=== PATIENT | male | born 1950 | race Caucasian/White ===

== ENCOUNTER → 2016-07-10 | Outpatient (CLI) | payer MEDICARE ==
[2015-12-14 12:23] VITALS: BP 139/79
[~2016-07-10] MED LIST: CETI10TA77 PO; FLUT10SP NS; LOSA25TA4 PO; RANI150T2 PO; SITA100T PO; TAMS0.4C2 PO; VENTOLIN HFA18 GM IH
--- NOTE | 2016-07-11 10:41 | SLEEP ---
DATE OF STUDY: 07/10/2016 ATTENDING PHYSICIAN: Dr. Jennifer Bob. INDICATIONS: The patient is 65 years old who weighs 229 pounds with a BMI of 46. The patient's [place] score was 8. Sleep study was performed at [facility] to rule out GABBIE. During the night of the study, the patient spent 423 minutes in bed and slept for 337 minutes with a sleep efficiency of 80%. Sleep latency was 13 minutes with a REM latency of 312 minutes. Overall, sleep architecture showed increased stage I sleep, normal stage II sleep, normal slow wave, and reduced REM sleep. During the night of the study, the patient had one obstructive apnea, no mixed or central apneas. There were 7 hypopneas. The patient's apnea hypopnea index was 7 per hour. Supine index 13 per hour with a REM index of 10 per hour. Review of nocturnal oximetry study revealed a mean oxygen saturation of 96% with the lowest of 87%. 18.5% of time oxygen saturation remained between 80% and 89% and predominate was between 87-89%. EKG monitoring revealed average heart rate of 68 beats per minute. Normal sinus rhythm. No sustained arrhythmias were observed. PLMS were seen at index of 68 per hour and 1 per hour caused EEG arousals. Due to low AHI, the patient did not meet the criteria for CPAP initiation. IMPRESSION: 1. Mild sleep apnea-hypopnea syndrome with an AHI of 7 per hour. 2. Mild nocturnal hypoxia, suspect secondary to obesity hypoventilation syndrome. 3. Severe periodic limb movements of sleep at an index of 68 per hour, but only 1 per hour caused EEG arousals. RECOMMENDATIONS: 1. The patient did not meet the criteria for CPAP initiation due to low AHI. 2. Weight loss is first recommended to treat the patient's mild sleep apnea. In addition, the patient should also avoid sleeping in supine position. 3. If patient remains clinically symptomatic despite above recommendations, then other treatment options at that time would include a trial of an oral appliance or CPAP titration. 4. Caution regarding driving until the patient's hypersomnia is resolved. 5. PLMS does not need to be treated unless the patient has symptoms of restless legs during the day. DENISSE DASH MD DR: ARAMIS/mckinley JOB#: [id number] / [id number] JENNIFER Lindsay MD MTDD
== END | disposition home or self-care (01) ==
LOC: SLPLAB 18:36
PROVIDERS: ATTEND Physician Assistant Medical
DX: G47.33 Obstructive sleep apnea (adult) (pediatric) (principal); R06.83 Snoring
CPT/HCPCS: 95810

== ENCOUNTER 2017-03-15 06:33 | Day surgery (SDC) | payer MEDICARE ==
[~2017-03-15] VITALS: Ht 175.3 cm; Wt 108.9 kg
[~2017-03-15 06:33] MED LIST changes: +ALFU10TA3 PO
[2017-03-15] MEDS ORDERED: PROCHLORPERAZINE 10 MG/2 ML VIAL. IV PRN (07:00)
[2017-03-15] MEDS ORDERED: ONDANSETRON PF 4 MG/2 ML VIAL. IV PRN (07:00)
[2017-03-15] MEDS ORDERED: LIDOCAINE 1% 1 ML SYRINGE. ID PRN (07:00)
[2017-03-15] MEDS ORDERED: fentaNYL PF VIAL 100 MCG/2 ML VIAL IV PRN ×2 (07:00)
[2017-03-15] MEDS ORDERED: IV RINGERS,LACTATED 1000ML 1,000 ML IV SCH (07:00)
[2017-03-15] MEDS ORDERED: BUPIVAC MPF-EPI 0.5%-1:200000 10 ML VIAL. ONE (07:10)
[2017-03-15] MEDS ORDERED: LIDOCAINE 2% PF Vial for OR 5 ML VIAL. ONE ×2 (07:21→09:33)
[2017-03-15] MEDS ORDERED: FAMOTIDINE 20 MG/2 ML VIAL ONE (07:21)
[2017-03-15] MEDS ORDERED: ONDANSETRON PF 4 MG/2 ML VIAL. ONE ×2 (07:21→09:33)
[2017-03-15] MEDS ORDERED: PROPOFOL 20 ML IV ONE ×2 (07:21→09:33)
[2017-03-15] MEDS ORDERED: DEXAMETHASONE SOD PHOS 20 MG/5 ML VIAL. ONE (07:21)
[2017-03-15] MEDS ORDERED: MIDAZOLAM HCL/PF 2 MG/2 ML VIAL. ONE (07:22)
[2017-03-15] MEDS ORDERED: fentaNYL PF VIAL 100 MCG/2 ML VIAL ONE ×2 (07:22→09:58)
[2017-03-15] MEDS ORDERED: ROCURONIUM 100 MG/10 ML VIAL. ONE (07:22)
[2017-03-15] MEDS ORDERED: SUCCINYLCHOLINE 200 MG/10 ML VIAL. ONE (08:16)
[2017-03-15] MEDS ORDERED: PHENYLEPHRINE in 0.9% NACL PF 1 MG/10 ML DISP.SYRIN. IV ONE (08:33)
[2017-03-15] MEDS ORDERED: SEVOFLURANE 31 TO 60 MINUTES. IH ONE (09:33)
--- NOTE | 2017-03-15 09:42 | PDOC ---
BRIEF OPERATIVE NOTE Pre-Op Diagnosis #[id number] umbilical hernia umb hernia repair with mesh lj richards ebl 10 ivf 1000 curtis well to rr stable. AIDE OCONNOR MD Mar 15, 2017 09:42
[2017-03-15] MEDS ORDERED: OXYC-323 PO (09:44)
[2017-03-15] MEDS ORDERED: oxyCODONE/APAP 5/325 1 TAB TABLET PO ONE (10:00)
--- NOTE | 2017-03-15 10:07 | OP ---
DATE OF SURGERY: 03/15/2017 PREOPERATIVE DIAGNOSIS: Umbilical hernia. POSTOPERATIVE DIAGNOSIS: Umbilical hernia. PROCEDURE: Umbilical hernia repair with mesh. SURGEON: Aide Oconnor MD ANESTHESIA: General. ESTIMATED BLOOD LOSS: 10 mL IV FLUIDS: 1000 mL INDICATIONS: The patient is a 66-year-old male who presents with an umbilical hernia that he would like to have it repaired, it is symptomatic. FINDINGS: He had a 2 x 3 cm hernia defect. His fascia was very thin. He has a diastasis recti and his subcutaneous fat was also very sparse. The dermis of the umbilicus was adherent to the fascia and had to be removed with cautery. At the completion of the procedure, the umbilical skin appeared viable and healthy. PROCEDURE IN DETAIL: After informed consent was obtained, the patient was taken to the operating room and placed in supine position. After adequate induction of general anesthesia, he was prepped and draped in usual sterile fashion. A supraumbilical skin incision was made with a scalpel. Subcutaneous tissue divided with cautery. The fascia was quickly encountered. He had a very minimal amount of subcutaneous fat. This was somewhat unexpected since his BMI is 35. The dermis of the umbilicus was from the hernia sac and then from its attachment to the fascia, there was minimal amount of subcutaneous fat to preserve the blood supply to the dermis. At this point, the fascial was inspected. He had a very small 2-3 mm defect above the primary defect, but the primary defect measured 2 x 3 cm. The hernia was repaired with an 8 cm Bard Ventralex patch that was placed beneath the fascia and sutured in place with 8 interrupted U sutures using 0 Prolene to secure the periphery of the mesh to the abdominal wall. The area was irrigated. The fascia was injected with local anesthetic. The skin had been injected with local anesthetic at the beginning of the procedure. The fascia was then closed over the mesh with 0 Prolene in a running fashion and then the dermis of the umbilicus was tacked back down to the fascia with 3-0 Vicryl x 2. The skin was closed with 4-0 Monocryl in subcuticular fashion. Sterile dressings were placed, which consisted of a cotton ball, followed by Mastisol, Steri-Strips, and Tegaderm. He tolerated the procedure well. He has been transferred in stable condition to the recovery room. AIDE OCONNOR MD DR: EVELIN/mckinley JOB#: [id number] / [id number] JENNIFER Lindsay MD, LAIN RIOS
[2017-03-15 10:30] VITALS: BP 112/72
== END 2017-03-15 11:08 | disposition home or self-care (01) ==
LOC: SURG 06:33
PROVIDERS: ATTEND Surgery
DX: K42.9 Umbilical hernia without obstruction or gangrene (principal); E78.00 Pure hypercholesterolemia, unspecified; I10 Essential (primary) hypertension; J45.909 Unspecified asthma, uncomplicated; K21.9 Gastro-esophageal reflux disease without esophagitis; E66.9 Obesity, unspecified; Z68.44 Body mass index [BMI] 60.0-69.9, adult; E11.9 Type 2 diabetes mellitus without complications; M19.91 Primary osteoarthritis, unspecified site; Z87.39 Personal history of other diseases of the musculoskeletal system and connective tissue; Z72.0 Tobacco use; Z88.8 Allergy status to other drugs, medicaments and biological substances; Z88.6 Allergy status to analgesic agent; Z91.041 Radiographic dye allergy status
CPT/HCPCS: 49585; 82962; J0330; J0690; J1100; J2250; J2370; J2405; J2704; J3010; J3490; S0028; A4215; J7120; J2001

== ENCOUNTER 2017-03-15 15:53 | Emergency (ER) | payer MEDICARE ==
[~2017-03-15] VITALS: Ht 175.3 cm; Wt 108.9 kg
[~2017-03-15 15:53] MED LIST changes: +OXYC-323 PO
[2017-03-15 16:10] VITALS: BP 140/90
[2017-03-15 16:49] LABS: BILIRUBIN,URINE NEGATIVE (NEG); GLUCOSE,URINE NEGATIVE (NEG); NITRITE,URINE NEGATIVE (NEG); PH,URINE 6.5; PROTEIN,URINE NEGATIVE (NEG-TRACE); UROBILINOGEN,URINE 0.2 mg/dL (0.2 mg/dL)
[2017-03-15 16:57] LABS: BACTERIA,URINE 0 /HPF (0-FEW); RBC,URINE 0 /HPF (0-2); WBC,URINE 0 /HPF (0-4)
--- NOTE | 2017-03-15 17:35 | PHYS DOC ---
Past Medical History Past Medical History: Diabetes-Type II, High Cholesterol, Hypertension, Other Additional Past Medical Histor: hernia Past Surgical History: Other Additional Past Surgical Histo: BILATERAL SHOULDER REPAIR; (L) KNEE REPAIR; hernia Alcohol Use: Occasionally Drug Use: None Adult General Chief Complaint Chief Complaint: URINARY RETENTION HPI HPI Patient is a 66 year old male who presents with urinary retention. The patient states he had inguinal hernia repair at about [address] Moya. He has not been able to urinate since before the surgery. He does have suprapubic fullness and discomfort. Denies fevers or chills, nausea or vomiting, flank pain. No history of BPH or urinary retention. He called Dr. Lozano who referred him here for further evaluation. Review of Systems Review of Systems Constitutional: Denies fever or chills HENT: Denies nasal congestion or sore throat Respiratory: Denies cough or shortness of breath Cardiovascular: Denies chest pain GI: Denies abdominal pain, nausea, vomiting, or diarrhea : Reports urinary retention Musculoskeletal: Denies back pain or joint pain Integument: Denies rash or skin lesions Neurologic: Denies headache Allergies Allergies Allergies Coded Allergies Type Severity Reaction Last Updated Verified iodine Allergy Severe Anaphylaxis 03/15/17 Yes metformin Allergy Intermediate 03/15/17 Yes morphine Allergy Intermediate Nausea and Vomiting 03/15/17 Yes naproxen sodium Allergy Intermediate Rash 03/15/17 Yes simvastatin Allergy Intermediate 03/15/17 Yes Physical Exam Physical Exam Constitutional: Obese, no acute distress, non-toxic appearance. HENT: Normocephalic, atraumatic, bilateral external ears normal, oropharynx moist, nose normal. Eyes: conjunctiva normal, no discharge. Neck: supple, no stridor. Cardiovascular: RRR, no murmurs, no edema. Lungs & Thorax: LCTAB, no wheezing, no respiratory distress. Abdomen: soft, suprapubic tenderness without rebound or guarding, no masses or pulsatile masses, nondistended. Surgical bandages in place, clean/dry/intact. Skin: Warm, dry, no erythema, no rash. Back: No CVA tenderness. Extremities: No tenderness, no edema. Neurologic: Alert and oriented X 3, no focal deficits noted. Psychologic: Affect normal, judgement normal, mood normal. Current Patient Data Vital Signs Vital Signs Date Time Temp Pulse Resp B/P (MAP) Pulse Ox O2 Delivery O2 Flow Rate FiO2 03/15/17 16:10 98.3 76 18 140/90 (107) 92 Room Air 98.3 Lab Values Laboratory Tests Test 03/15/17 16:35 Urine Collection Type U cath Urine Color Yellow Urine Clarity Clear Urine pH 6.5 Urine Specific [place] 1.010 Urine Protein Negative mg/dL (NEG-TRACE) Urine Glucose (UA) Negative mg/dL (NEG) Urine Ketones (Stick) Negative mg/dL (NEG) Urine Blood Negative (NEG) Urine Nitrite Negative (NEG) Urine Bilirubin Negative (NEG) Urine Urobilinogen Dipstick 0.2 mg/dL (0.2 mg/dL) Urine Leukocyte Esterase Negative (NEG) Urine RBC 0 /HPF (0-2) Urine WBC 0 /HPF (0-4) Urine Renal Epithelial Cells Few /LPF Urine Bacteria 0 /HPF (0-FEW) EKG EKG [] Radiology/Procedures Radiology/Procedures [] Course & Med Decision Making Course & Med Decision Making Pertinent Labs and Imaging studies reviewed. (See chart for details) The patient presents with acute urinary retention. RN performed straight catheterization with greater than 600 mL of urine output. Dr. Lozano had advised that the patient would most likely be able to spontaneously void after initial drainage of bladder, so did not recommend that he go home with cheema. Dr. Obrien took the call from Dr. Lozano prior to arrival. The patient had significant relief of his symptoms. Recommended labs and UA. The patient stated he had already been at the hospital all day and didn't want to stay any longer. He declined labs. I informed him that he could have lab abnormalities contributing to this condition, such as acute renal failure. He does not want to stay and understands risks of leaving including undiagnosed condition. Recommend follow-up with Dr. Moya in 2-3 days. Come back for high fever, severe pain, uncontrolled vomiting, recurrence of urinary retention, any otherwise worsening condition. Discharged home in stable condition. He did not wait for discharge papers. [] Dragon Disclaimer Dragon Disclaimer This electronic medical record was generated, in whole or in part, using a voice recognition dictation system. Departure Departure Impression: Primary Impression: Acute urinary retention Disposition: HOME, SELF-CARE Condition: STABLE JENNY TURPIN MD Mar 15, 2017 17:35
== END 2017-03-15 16:56 | disposition home or self-care (01) ==
LOC: ER 15:53
DX: R33.9 Retention of urine, unspecified (principal); E11.9 Type 2 diabetes mellitus without complications; I10 Essential (primary) hypertension; E78.00 Pure hypercholesterolemia, unspecified; Z98.890 Other specified postprocedural states; Z88.5 Allergy status to narcotic agent; Z88.8 Allergy status to other drugs, medicaments and biological substances; Z91.041 Radiographic dye allergy status
CPT/HCPCS: 81001; 99283; P9612

== ENCOUNTER 2017-03-16 23:27 | Inpatient (IN) | payer MEDICARE ==
[~2017-03-16] VITALS: Ht 175.3 cm; Wt 108.9 kg
--- NOTE | 2017-03-16 23:47 | PHYS DOC ---
Past Medical History Past Medical History: Diabetes-Type II, High Cholesterol, Hypertension, Other Additional Past Medical Histor: hernia Past Surgical History: Other Additional Past Surgical Histo: BILATERAL SHOULDER REPAIR; (L) KNEE REPAIR; hernia Alcohol Use: Occasionally Drug Use: None Adult General Chief Complaint Chief Complaint: MULTIPLE COMPLAINTS HPI HPI Patient is a 66 year old male who presents with nausea vomiting and a syncopal episode. He states his symptoms started tonight around 7:00 when he started having vomiting and vomited about 4 times nonbloody nonbilious material. In the course of vomiting he passed out. He also states he feels exhausted and short of breath like he just ran a brace. He denies any chest pain. He states that he had his hernia repair on March 15, 2017 and since that he's not had any flatus or stools. He also states his abdomen is distended. He also states he had to come in yesterday because of urinary retention to have his bladder drained. He states his been urinating fine without any difficulty. Review of Systems Review of Systems Constitutional: Denies fever or chills [] Eyes: Denies change in visual acuity, redness, or eye pain [] HENT: Denies nasal congestion or sore throat [] Respiratory: Denies cough or shortness of breath [] Cardiovascular: No additional information not addressed in HPI [] GI: Positive for abdominal pain, nausea, vomiting, denies any bloody stools or diarrhea [] : Denies dysuria or hematuria [] Musculoskeletal: Denies back pain or joint pain [] Integument: Denies rash or skin lesions [] Neurologic: Denies headache, focal weakness or sensory changes [] Endocrine: Denies polyuria or polydipsia [] Current Medications Current Medications Current Medications Medications (Trade) Dose Ordered Sig/Len Start Time Stop Time Status Last Admin Dose Admin Ondansetron HCl (Zofran) 4 mg 1X ONCE 03/17/17 00:00 03/17/17 00:01 DC 03/17/17 00:28 4 MG Sodium Chloride 1,000 ml @ 1,000 mls/hr 1X ONCE 03/17/17 00:00 03/17/17 00:59 DC 03/17/17 00:30 1,000 MLS/HR Allergies Allergies Allergies Coded Allergies Type Severity Reaction Last Updated Verified iodine Allergy Severe Anaphylaxis 03/15/17 Yes metformin Allergy Intermediate 03/15/17 Yes morphine Allergy Intermediate Nausea and Vomiting 03/15/17 Yes naproxen sodium Allergy Intermediate Rash 03/15/17 Yes simvastatin Allergy Intermediate 03/15/17 Yes Physical Exam Physical Exam Constitutional: Well developed, well nourished, no acute distress, non-toxic appearance. [] HENT: Normocephalic, atraumatic, bilateral external ears normal, oropharynx moist, no oral exudates, nose normal. [] Eyes: PERRLA, EOMI, conjunctiva normal, no discharge. [] Neck: Normal range of motion, no tenderness, supple, no stridor. [] Cardiovascular:Heart rate regular rhythm, no murmur [] Lungs & Thorax: Bilateral breath sounds clear to auscultation [] Abdomen: Bowel sounds normal, soft, distended with hypoactive occasional high- pitched sounds, dressing over the umbilicus with mild erythema extending partially 6 cm below, no masses, no pulsatile masses. [] Skin: Warm, dry, no erythema, no rash. [] Back: No tenderness, no CVA tenderness. [] Extremities: No tenderness, no cyanosis, no clubbing, ROM intact, no edema. [] Neurologic: Alert and oriented X 3, normal motor function, normal sensory function, no focal deficits noted. [] Psychologic: Affect normal, judgement normal, mood normal. [] Current Patient Data Vital Signs Vital Signs Date Time Temp Pulse Resp B/P (MAP) Pulse Ox O2 Delivery O2 Flow Rate FiO2 03/17/17 03:05 88 Room Air 03/17/17 02:30 76 11 132/73 (92) 03/16/17 23:37 97.9 97.9 Lab Values Laboratory Tests Test 03/16/17 23:48 03/17/17 02:45 03/17/17 03:56 White Blood Count 17.6 x10^3/uL (4.0-11.0) H Red Blood Count 5.73 x10^6/uL (4.30-5.70) H Hemoglobin 17.2 g/dL (13.0-17.5) Hematocrit 51.7 % (39.0-53.0) Mean Corpuscular Volume 90 fL (79-100) Mean Corpuscular Hemoglobin 30 pg (25-35) Mean Corpuscular Hemoglobin Concent 33 g/dL (31-37) Red Cell Distribution Width 13.9 % (11.5-14.5) Platelet Count 187 x10^3/uL (140-400) Neutrophils (%) (Auto) 85 % (31-73) H Lymphocytes (%) (Auto) 7 % (24-48) L Monocytes (%) (Auto) 7 % (0-9) Eosinophils (%) (Auto) 1 % (0-3) Basophils (%) (Auto) 0 % (0-3) Neutrophils # (Auto) 14.9 x10^3uL (1.8-7.7) H Lymphocytes # (Auto) 1.2 x10^3/uL (1.0-4.8) Monocytes # (Auto) 1.3 x10^3/uL (0.0-1.1) H Eosinophils # (Auto) 0.2 x10^3/uL (0.0-0.7) Basophils # (Auto) 0.1 x10^3/uL (0.0-0.2) Prothrombin Time 13.9 SEC (11.7-14.0) Prothrombin Time INR 1.1 (0.8-1.1) Sodium Level 139 mmol/L (136-145) Potassium Level 4.0 mmol/L (3.5-5.1) Chloride Level 97 mmol/L (98-107) L Carbon Dioxide Level 36 mmol/L (21-32) H Anion Gap 6 (6-14) Blood Urea Nitrogen 14 mg/dL (8-26) Creatinine 1.0 mg/dL (0.7-1.3) Estimated GFR (Cockcroft-Gault) 74.8 Glucose Level 142 mg/dL (70-99) H Calcium Level 10.1 mg/dL (8.5-10.1) Magnesium Level 1.9 mg/dL (1.8-2.4) Total Bilirubin 0.5 mg/dL (0.2-1.0) Direct Bilirubin < 0.1 mg/dL (0.0-0.2) Aspartate Amino Transferase (AST) 33 U/L (15-37) Alanine Aminotransferase (ALT) 33 U/L (16-63) Alkaline Phosphatase 79 U/L (46-116) Creatine Kinase 511 U/L (39-308) H Creatine Kinase MB (Mass) 7.6 ng/mL (0.0-3.6) H Creatine Kinase MB Relative Index 1.5 % (0-4) Troponin I Quantitative < 0.017 ng/mL (0.000-0.055) < 0.017 ng/mL (0.000-0.055) NQ-Xqa-R-Type Natriuretic Peptide 119 pg/mL (0-124) Total Protein 7.5 g/dL (6.4-8.2) Albumin 4.2 g/dL (3.4-5.0) Lipase 140 U/L (73-393) Thyroid Stimulating Hormone (TSH) 4.216 uIU/mL (0.358-3.74) H Urine Collection Type Unknown Urine Color Yellow Urine Clarity Clear Urine pH 7.0 Urine Specific [place] 1.010 Urine Protein Negative mg/dL (NEG-TRACE) Urine Glucose (UA) Negative mg/dL (NEG) Urine Ketones (Stick) Negative mg/dL (NEG) Urine Blood Negative (NEG) Urine Nitrite Negative (NEG) Urine Bilirubin Negative (NEG) Urine Urobilinogen Dipstick 0.2 mg/dL (0.2 mg/dL) Urine Leukocyte Esterase Negative (NEG) Urine RBC Occ /HPF (0-2) Urine WBC Occ /HPF (0-4) Urine Squamous Epithelial Cells Few /LPF Urine Amorphous Sediment Present /HPF Urine Bacteria 0 /HPF (0-FEW) Urine Opiates Screen Neg (NEG) Urine Methadone Screen Neg (NEG) Urine Barbiturates Neg (NEG) Urine Phencyclidine Screen Neg (NEG) Urine Amphetamine/Methamphetamine Neg (NEG) Urine Benzodiazepines Screen Neg (NEG) Urine Cocaine Screen Neg (NEG) Urine Cannabinoids Screen Neg (NEG) Urine Ethyl Alcohol Neg (NEG) Laboratory Tests 03/16/17 23:48 Laboratory Tests 03/16/17 23:48 EKG EKG EKG shows sinus rhythm with rate of [address] elevations, T-wave inversions noted in leads aVL, V1 V2, normal axis, QTC 396 ms, as interpreted by me. Radiology/Procedures Radiology/Procedures [facility] [address] [place] [address] IMAGING REPORT Signed PATIENT: XOCHITL CUENCA ACCOUNT: [id number] : 1950 LOCATION: ER AGE: 66 SEX: M EXAM STATUS: REG ER ORD. PHYSICIAN: LULÚ LEIVA MD REASON: pain PROCEDURE: CT ABDOMEN PELVIS WO CONTRAST INDICATION: abd distension COMPARISON: None. TECHNIQUE: Axial CT images were obtained through the abdomen and pelvis without intravenous contrast. Limited assessment of solid organ structures and vasculature secondary to lack of intravenous contrast. One or more of the following individualized dose reduction techniques were utilized for this examination: 1. Automated exposure control; 2. Adjustment of the mA and/or kV according to patient size; 3. Use of iterative reconstruction technique. FINDINGS: Mild probable atelectasis at lung bases. Mild calcific atherosclerosis without abdominal aortic aneurysm. Small left greater than right fat-containing inguinal hernia. Couple of Subcentimeter low-attenuation right lobe of liver lesion, not well characterized on this exam. No intrahepatic bile duct dilation. Gallbladder is contracted. No peripancreatic edema. Spleen unremarkable. No hydronephrosis. Bladder is partially distended at time of exam. There is some subcutaneous edema at the ventral abdominal wall with some subcutaneous air. Colonic diverticulosis. There is dilation of proximal loops of bowel with distal decompression. There is also dilatation of the stomach. Degenerative changes spine. This contributes to multilevel central canal neural foraminal stenosis. IMPRESSION: 1. Dilatation of the stomach and proximal small bowel loops with more distal decompression. This can be seen in small bowel obstruction. 2. There is subcutaneous air and edema anterior abdominal and pelvic wall. Would correlate for possible causes such as posttraumatic or injection related. If no history of injection or trauma other possible causes include infection. 3. Subcentimeter low-attenuation liver lesions which are too small to characterize on this exam. Electronically signed by: Charlette Jones MD (03/17/2017 2:30 AM) [facility] DICTATED and SIGNED BY: CHARLETTE JONES MD DATE: 03/17/17 0216 CC: LULÚ LEIVA MD; JENNIFER JONES MD ~ Impressions: Bowel obstruction Syncope Course & Med Decision Making Course & Med Decision Making Pertinent Labs and Imaging studies reviewed. (See chart for details) Labs show any acute abnormality's. CT scan shows obstruction with an area of concern along the abdominal and pelvic wall. I spoke with Dr. Lozano regarding the CT scan, his vitals, his presentation and labs. Patient's being admitted for his bowel obstruction. His pain is controlled at this time. We will write interim orders for D5 half normal saline. Spoke with Dr. Jennifer Jones who agrees with the plan. I believe his syncopal episode occurred while he was vomiting is likely vasovagal in nature. Will put on telemetry and repeat troponins. He's been ER for 5 hours and has not had any other complaints. Dragon Disclaimer Dragon Disclaimer This electronic medical record was generated, in whole or in part, using a voice recognition dictation system. Departure Departure Impression: Primary Impression: Bowel obstruction Disposition: HOME, SELF-CARE Admitting Physician: Jennifer Jones Condition: STABLE Referrals: JENNIFER JONES MD (PCP) Problem Qualifiers Primary Impression: Bowel obstruction Intestinal obstruction type: other intestinal obstruction Qualified Codes: K56.69 - Other intestinal obstruction LULÚ LEIVA MD Mar 16, 2017 23:47
[2017-03-17] LABS: BASO # 0.1 x10^3/uL (0.0-0.2); BASO % 0 % (0-3); EOS % 1 % (0-3); HEMATOCRIT 51.7 % (39.0-53.0); HEMOGLOBIN 17.2 g/dL (13.0-17.5); LYMPH # 1.2 x10^3/uL (1.0-4.8); LYMPH % 7 % (24-48); MEAN CORPUSCULAR HEMOGLOBIN 30 pg (25-35); MEAN CORPUSCULAR HGB CONC 33 g/dL (31-37); MEAN CORPUSCULAR VOLUME 90 fL (79-100); MONO % 7 % (0-9); NEUT % 85 % (31-73); PLATELET COUNT 187 x10^3/uL (140-400); RED BLOOD COUNT 5.73 x10^6/uL (4.30-5.70); RED CELL DISTRIBUTION WIDTH 13.9 % (11.5-14.5); WHITE BLOOD COUNT 17.6 x10^3/uL (4.0-11.0)
[2017-03-17] MEDS ORDERED: IV NORMAL SALINE 1000ML BAG 1,000 ML IV ONE
[2017-03-17] MEDS ORDERED: ONDANSETRON PF 4 MG/2 ML VIAL. IV ONE
[2017-03-17 00:16] LABS: ANION GAP 6 (6-14); BLOOD UREA NITROGEN 14 mg/dL (8-26); CALCIUM 10.1 mg/dL (8.5-10.1); CARBON DIOXIDE 36 mmol/L (21-32); CHLORIDE 97 mmol/L (98-107); GFR 74.8; GLUCOSE 142 mg/dL (70-99); INR 1.1 (0.8-1.1); PROTHROMBIN TIME PATIENT 13.9 SEC (11.7-14.0); SODIUM 139 mmol/L (136-145)
[2017-03-17 00:21] LABS: ALBUMIN 4.2 g/dL (3.4-5.0); ALK PHOS 79 U/L (46-116); ALT (SGPT) 33 U/L (16-63); AST (SGOT) 33 U/L (15-37); DIRECT BILIRUBIN < 0.1 mg/dL (0.0-0.2); MAGNESIUM 1.9 mg/dL (1.8-2.4); TOTAL BILIRUBIN 0.5 mg/dL (0.2-1.0); TOTAL PROTEIN 7.5 g/dL (6.4-8.2)
[2017-03-17 00:29] LABS: CKMB MASS 7.6 ng/mL (0.0-3.6)
--- NOTE | 2017-03-17 02:34 | RAD ---
INDICATION: abd distension COMPARISON: None. TECHNIQUE: Axial CT images were obtained through the abdomen and pelvis without intravenous contrast. Limited assessment of solid organ structures and vasculature secondary to lack of intravenous contrast. One or more of the following individualized dose reduction techniques were utilized for this examination: 1. Automated exposure control; 2. Adjustment of the mA and/or kV according to patient size; 3. Use of iterative reconstruction technique. FINDINGS: Mild probable atelectasis at lung bases. Mild calcific atherosclerosis without abdominal aortic aneurysm. Small left greater than right fat-containing inguinal hernia. Couple of Subcentimeter low-attenuation right lobe of liver lesion, not well characterized on this exam. No intrahepatic bile duct dilation. Gallbladder is contracted. No peripancreatic edema. Spleen unremarkable. No hydronephrosis. Bladder is partially distended at time of exam. There is some subcutaneous edema at the ventral abdominal wall with some subcutaneous air. Colonic diverticulosis. There is dilation of proximal loops of bowel with distal decompression. There is also dilatation of the stomach. Degenerative changes spine. This contributes to multilevel central canal neural foraminal stenosis. IMPRESSION: 1. Dilatation of the stomach and proximal small bowel loops with more distal decompression. This can be seen in small bowel obstruction. 2. There is subcutaneous air and edema anterior abdominal and pelvic wall. Would correlate for possible causes such as posttraumatic or injection related. If no history of injection or trauma other possible causes include infection. 3. Subcentimeter low-attenuation liver lesions which are too small to characterize on this exam. Electronically signed by: Ricardo Bob MD (03/17/2017 2:30 AM) [facility]
[2017-03-17 03:07] LABS: BILIRUBIN,URINE NEGATIVE (NEG); GLUCOSE,URINE NEGATIVE (NEG); NITRITE,URINE NEGATIVE (NEG); PROTEIN,URINE NEGATIVE (NEG-TRACE); UROBILINOGEN,URINE 0.2 mg/dL (0.2 mg/dL)
[2017-03-17 03:14] LABS: BARBITURATES NEG (NEG); BENZODIAZEPINES NEG (NEG); CANNABINOIDS NEG (NEG); COCAINE NEG (NEG); METHADONE NEG (NEG); OPIATES NEG (NEG); PHENCYCLIDINE NEG (NEG)
[2017-03-17 03:23] LABS: BACTERIA,URINE 0 /HPF (0-FEW); RBC,URINE OCC /HPF (0-2); SQUAMOUS EPITHELIAL CELL,UR FEW /LPF; WBC,URINE OCC /HPF (0-4)
[2017-03-17] MEDS ORDERED: IV DEXTROSE 5 %-0.45 % NACL 1,000 ML IV ONE (05:30)
--- NOTE | 2017-03-17 06:13 | EKG ---
[facility] [address] [place] [address] Test Date: 2017-03-16 Test Time: 23:46:35 Pat Name: XOCHITL CUENCA Department: Room: 422 Gender: M [employer]or: : 1950 Requested By: LULÚ LEIVA Order Number: [id number] Reading MD: Desire Dahl Measurements Intervals [place] Rate: 57 P: 39 [place]: 156 QRS: 72 QRSD: 82 T: 59 QT: 404 QTc: 396 Interpretive Statements SINUS RHYTHM NORMAL EKG Electronically Signed On 03-28-2017 9:53:48 CDT by Desire Dahl
[2017-03-17 07:00] VITALS: BP 133/82
--- NOTE | 2017-03-17 07:35 | RAD ---
Portable chest, 03/16/2017: History: Syncope Comparison is made to a study from 03/19/2015. The heart size and pulmonary vascularity are normal. There is bibasilar linear atelectasis or scarring. No pulmonary consolidation is seen. There is no evidence of pleural fluid. IMPRESSION: Minimal bibasilar linear atelectasis and/or scarring.
--- NOTE | 2017-03-17 07:39 | RAD ---
Abdomen, 2 views, 03/17/2017: History: Abdominal distention There is gas in the colon without significant colonic distention. There is very little small bowel gas. Gastric and mild small bowel distention seen on the recent CT study is not visible radiographically since those structures are fluid-filled. No free air is seen in the abdomen. There is no evidence of organomegaly. Wire-like opacities overlying the upper pelvis most likely lie on the of the patient. IMPRESSION: No acute radiographic abnormality is detected.
[2017-03-17 08:25] LABS: BASO % 0 % (0-3); EOS % 2 % (0-3); HEMATOCRIT 47.3 % (39.0-53.0); HEMOGLOBIN 15.6 g/dL (13.0-17.5); LYMPH # 1.1 x10^3/uL (1.0-4.8); LYMPH % 9 % (24-48); MEAN CORPUSCULAR HEMOGLOBIN 30 pg (25-35); MEAN CORPUSCULAR HGB CONC 33 g/dL (31-37); MEAN CORPUSCULAR VOLUME 91 fL (79-100); MONO % 8 % (0-9); NEUT % 81 % (31-73); PLATELET COUNT 171 x10^3/uL (140-400); RED BLOOD COUNT 5.21 x10^6/uL (4.30-5.70); RED CELL DISTRIBUTION WIDTH 14.3 % (11.5-14.5)
--- NOTE | 2017-03-17 08:33 | PDOC2 ---
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 Discharged home, returned with urinary retention(now urinating without problem). Reports hiccups since surgery , abdominal distention, no flatus or stool. Yesterday began vomiting and had a syncopal episode. Currently still having bloating, hiccups, and nausea Past Medical History Cardiovascular: HTN, Hyperlipidemia Endocrine: No pertinent hx Past Surgical History Past Surgical History: Hernia Repair Family History Family History: Other (noncontributory to current illness ) Social History Quit ALCOHOL: rare Drugs: None Current Problem List Problem List Problems Medical Problems: (1) Bowel obstruction Status: Acute Current Medications Current Medications Current Medications Sodium Chloride 1,000 ml @ 1,000 mls/hr 1X ONCE IV Last administered on 00:30; Start 03/17/17 at 00:00; Stop 03/17/17 at 00:59; Status DC Ondansetron HCl (Zofran) 4 mg 1X ONCE IV Last administered on 03/17/17 00:28 ; Start 03/17/17 at 00:00; Stop 03/17/17 at 00:01; Status DC Ondansetron HCl (Zofran) 4 mg PRN Q8HRS PRN IV NAUSEA/VOMITING; Start 03/17/17 at 05:30; Stop 03/18/17 at 05:29 Fentanyl Citrate (Fentanyl 2ml Vial) 50 mcg PRN Q2HR PRN IV PAIN; Start at 05:30; Stop 03/18/17 at 05:29 Dextrose/Sodium Chloride 1,000 ml @ 100 mls/hr 1X ONCE IV Last administered on 03/17/17 05:30; Start 03/17/17 at 05:30; Stop 03/17/17 at 15:29 Active Scripts Active Percocet 5-325 Mg Tablet (Oxycodone/Acetaminophen) 1 Each Tablet 1-2 Tab PO Q4- 6HRS Reported Alfuzosin Hcl 10 Mg Tab.er.24h 10 Mg PO DAILY Ventolin Hfa Inhaler (Albuterol Sulfate) 18 Gm Hfa.aer.ad 18 Gm IH PRN DAILY Ranitidine Hcl 150 Mg Tablet 150 Mg PO PRN PRN Veramyst (Fluticasone Furoate) 10 Gm [place].susp 10 Gm NS DAILY Losartan Potassium 25 Mg Tablet 25 Mg PO QODAY Januvia (Sitagliptin Phosphate) 100 Mg Tablet 50 Mg PO DAILY Allergy (Cetirizine Hcl) 10 Mg Tablet 10 Mg PO DAILY Allergies Allergies: Coded Allergies: iodine (Verified Allergy, Severe, Anaphylaxis, 03/15/17) metformin (Verified Allergy, Intermediate, 03/15/17) "FOOT CRAMPS" morphine (Verified Allergy, Intermediate, Nausea and Vomiting, 03/15/17) naproxen sodium (Verified Allergy, Intermediate, Rash, 03/15/17) simvastatin (Verified Allergy, Intermediate, 03/15/17) MUSCLE CRAMPING ROS General: YES: Chills, Other (subjective fevers ) PSYCHOLOGICAL ROS: No: Anxiety, Depression Eyes: No Blurry vision, No Double vision HEENT: No: Heacaches, Sore Throat Hematological and Lymphatic: YES: Blood Clots (testicular), No: Bleeding Problems Respiratory: YES: Shortness of breath, No: Cough Cardiovascular: No Chest Pain, No Palpitations Gastrointestinal: Yes Other (see hpi) Genitourinary: YES Dysuria, No Hematuria Musculoskeletal: No Joint Pain, No Muscle Pain Neurological: No Confusion, No Numbness/Tingling Skin: No Pruritus, No Rash Physical Exam General: Alert, Oriented X3, Cooperative, No acute distress HEENT: PERRLA, Mucous membr. moist/pink Lungs: Clear to auscultation, Normal air movement Heart: Regular rate, Normal S1, Normal S2 Abdomen: Soft, Other (moderate distention, tenderness to ruq/mild RLQ, umbo incision c/d/i, no erythema, no guarding or rebound) Extremities: No clubbing, No cyanosis Skin: No rashes, No breakdown Neuro: Normal gait, Normal speech Psych/Mental Status: Mental status NL, Mood NL MUSCULOSKELETAL: No deformity, No swelling Vitals VITALS Vital Signs Date Time Temp Pulse Resp B/P (MAP) Pulse Ox O2 Delivery O2 Flow Rate FiO2 03/17/17 07:00 98.8 75 18 133/82 (99) 93 Nasal Cannula 2.0 98.8 Labs Labs Laboratory Tests Test 03/16/17 23:48 03/17/17 02:45 03/17/17 03:56 03/17/17 05:35 White Blood Count 17.6 x10^3/uL (4.0-11.0) Red Blood Count 5.73 x10^6/uL (4.30-5.70) Hemoglobin 17.2 g/dL (13.0-17.5) Hematocrit 51.7 % (39.0-53.0) Mean Corpuscular Volume 90 fL (79-100) Mean Corpuscular Hemoglobin 30 pg (25-35) Mean Corpuscular Hemoglobin Concent 33 g/dL (31-37) Red Cell Distribution Width 13.9 % (11.5-14.5) Platelet Count 187 x10^3/uL (140-400) Neutrophils (%) (Auto) 85 % (31-73) Lymphocytes (%) (Auto) 7 % (24-48) Monocytes (%) (Auto) 7 % (0-9) Eosinophils (%) (Auto) 1 % (0-3) Basophils (%) (Auto) 0 % (0-3) Neutrophils # (Auto) 14.9 x10^3uL (1.8-7.7) Lymphocytes # (Auto) 1.2 x10^3/uL (1.0-4.8) Monocytes # (Auto) 1.3 x10^3/uL (0.0-1.1) Eosinophils # (Auto) 0.2 x10^3/uL (0.0-0.7) Basophils # (Auto) 0.1 x10^3/uL (0.0-0.2) Prothrombin Time 13.9 SEC (11.7-14.0) Prothromb Time International Ratio 1.1 (0.8-1.1) Sodium Level 139 mmol/L (136-145) Potassium Level 4.0 mmol/L (3.5-5.1) Chloride Level 97 mmol/L (98-107) Carbon Dioxide Level 36 mmol/L (21-32) Anion Gap 6 (6-14) Blood Urea Nitrogen 14 mg/dL (8-26) Creatinine 1.0 mg/dL (0.7-1.3) Estimated GFR (Cockcroft-Gault) 74.8 Glucose Level 142 mg/dL (70-99) Calcium Level 10.1 mg/dL (8.5-10.1) Magnesium Level 1.9 mg/dL (1.8-2.4) Total Bilirubin 0.5 mg/dL (0.2-1.0) Direct Bilirubin < 0.1 mg/dL (0.0-0.2) Aspartate Amino Transf (AST/SGOT) 33 U/L (15-37) Alanine Aminotransferase (ALT/SGPT) 33 U/L (16-63) Alkaline Phosphatase 79 U/L (46-116) Creatine Kinase 511 U/L (39-308) Creatine Kinase MB (Mass) 7.6 ng/mL (0.0-3.6) Creatine Kinase MB Relative Index 1.5 % (0-4) Troponin I Quantitative < 0.017 ng/mL (0.000-0.055) < 0.017 ng/mL (0.000-0.055) < 0.017 ng/mL (0.000-0.055) BC-Jhq-N-Type Natriuretic Peptide 119 pg/mL (0-124) Total Protein 7.5 g/dL (6.4-8.2) Albumin 4.2 g/dL (3.4-5.0) Lipase 140 U/L (73-393) Thyroid Stimulating Hormone (TSH) 4.216 uIU/mL (0.358-3.74) Urine Collection Type Unknown Urine Color Yellow Urine Clarity Clear Urine pH 7.0 Urine Specific [place] 1.010 Urine Protein Negative mg/dL (NEG-TRACE) Urine Glucose (UA) Negative mg/dL (NEG) Urine Ketones (Stick) Negative mg/dL (NEG) Urine Blood Negative (NEG) Urine Nitrite Negative (NEG) Urine Bilirubin Negative (NEG) Urine Urobilinogen Dipstick 0.2 mg/dL (0.2 mg/dL) Urine Leukocyte Esterase Negative (NEG) Urine RBC Occ /HPF (0-2) Urine WBC Occ /HPF (0-4) Urine Squamous Epithelial Cells Few /LPF Urine Amorphous Sediment Present /HPF Urine Bacteria 0 /HPF (0-FEW) Urine Opiates Screen Neg (NEG) Urine Methadone Screen Neg (NEG) Urine Barbiturates Neg (NEG) Urine Phencyclidine Screen Neg (NEG) Urine Amphetamine/Methamphetamine Neg (NEG) Urine Benzodiazepines Screen Neg (NEG) Urine Cocaine Screen Neg (NEG) Urine Cannabinoids Screen Neg (NEG) Urine Ethyl Alcohol Neg (NEG) Test 03/17/17 07:31 Glucose (Fingerstick) 121 mg/dL (70-99) Laboratory Tests Test 03/16/17 23:48 03/17/17 02:45 03/17/17 03:56 03/17/17 05:35 White Blood Count 17.6 x10^3/uL (4.0-11.0) Red Blood Count 5.73 x10^6/uL (4.30-5.70) Hemoglobin 17.2 g/dL (13.0-17.5) Hematocrit 51.7 % (39.0-53.0) Mean Corpuscular Volume 90 fL (79-100) Mean Corpuscular Hemoglobin 30 pg (25-35) Mean Corpuscular Hemoglobin Concent 33 g/dL (31-37) Red Cell Distribution Width 13.9 % (11.5-14.5) Platelet Count 187 x10^3/uL (140-400) Neutrophils (%) (Auto) 85 % (31-73) Lymphocytes (%) (Auto) 7 % (24-48) Monocytes (%) (Auto) 7 % (0-9) Eosinophils (%) (Auto) 1 % (0-3) Basophils (%) (Auto) 0 % (0-3) Neutrophils # (Auto) 14.9 x10^3uL (1.8-7.7) Lymphocytes # (Auto) 1.2 x10^3/uL (1.0-4.8) Monocytes # (Auto) 1.3 x10^3/uL (0.0-1.1) Eosinophils # (Auto) 0.2 x10^3/uL (0.0-0.7) Basophils # (Auto) 0.1 x10^3/uL (0.0-0.2) Prothrombin Time 13.9 SEC (11.7-14.0) Prothromb Time International Ratio 1.1 (0.8-1.1) Sodium Level 139 mmol/L (136-145) Potassium Level 4.0 mmol/L (3.5-5.1) Chloride Level 97 mmol/L (98-107) Carbon Dioxide Level 36 mmol/L (21-32) Anion Gap 6 (6-14) Blood Urea Nitrogen 14 mg/dL (8-26) Creatinine 1.0 mg/dL (0.7-1.3) Estimated GFR (Cockcroft-Gault) 74.8 Glucose Level 142 mg/dL (70-99) Calcium Level 10.1 mg/dL (8.5-10.1) Magnesium Level 1.9 mg/dL (1.8-2.4) Total Bilirubin 0.5 mg/dL (0.2-1.0) Direct Bilirubin < 0.1 mg/dL (0.0-0.2) Aspartate Amino Transf (AST/SGOT) 33 U/L (15-37) Alanine Aminotransferase (ALT/SGPT) 33 U/L (16-63) Alkaline Phosphatase 79 U/L (46-116) Creatine Kinase 511 U/L (39-308) Creatine Kinase MB (Mass) 7.6 ng/mL (0.0-3.6) Creatine Kinase MB Relative Index 1.5 % (0-4) Troponin I Quantitative < 0.017 ng/mL (0.000-0.055) < 0.017 ng/mL (0.000-0.055) < 0.017 ng/mL (0.000-0.055) RF-Lee-Z-Type Natriuretic Peptide 119 pg/mL (0-124) Total Protein 7.5 g/dL (6.4-8.2) Albumin 4.2 g/dL (3.4-5.0) Lipase 140 U/L (73-393) Thyroid Stimulating Hormone (TSH) 4.216 uIU/mL (0.358-3.74) Urine Collection Type Unknown Urine Color Yellow Urine Clarity Clear Urine pH 7.0 Urine Specific [place] 1.010 Urine Protein Negative mg/dL (NEG-TRACE) Urine Glucose (UA) Negative mg/dL (NEG) Urine Ketones (Stick) Negative mg/dL (NEG) Urine Blood Negative (NEG) Urine Nitrite Negative (NEG) Urine Bilirubin Negative (NEG) Urine Urobilinogen Dipstick 0.2 mg/dL (0.2 mg/dL) Urine Leukocyte Esterase Negative (NEG) Urine RBC Occ /HPF (0-2) Urine WBC Occ /HPF (0-4) Urine Squamous Epithelial Cells Few /LPF Urine Amorphous Sediment Present /HPF Urine Bacteria 0 /HPF (0-FEW) Urine Opiates Screen Neg (NEG) Urine Methadone Screen Neg (NEG) Urine Barbiturates Neg (NEG) Urine Phencyclidine Screen Neg (NEG) Urine Amphetamine/Methamphetamine Neg (NEG) Urine Benzodiazepines Screen Neg (NEG) Urine Cocaine Screen Neg (NEG) Urine Cannabinoids Screen Neg (NEG) Urine Ethyl Alcohol Neg (NEG) Test 03/17/17 07:31 Glucose (Fingerstick) 121 mg/dL (70-99) Assessment/Plan Assessment/Plan s/p umbilical hernia repair distention, vomiting, hiccups sbo vs ileus dehydration will place NG for decompression, hydrate repeat abdominal films in AM LESLY JUNG MD 03/17/17 1359: CONSULT Allergies Allergies: Coded Allergies: iodine (Verified Allergy, Severe, Anaphylaxis, 03/15/17) metformin (Verified Allergy, Intermediate, 03/15/17) "FOOT CRAMPS" morphine (Verified Allergy, Intermediate, Nausea and Vomiting, 03/15/17) naproxen sodium (Verified Allergy, Intermediate, Rash, 03/15/17) simvastatin (Verified Allergy, Intermediate, 03/15/17) MUSCLE CRAMPING Assessment/Plan Assessment/Plan pt seen, interviewed and examined will advance NG a little follow exam agree with above Thanks for consult FELIX JIMENES APRN Mar 17, 2017 08:33 LESLY JUNG MD Mar 17, 2017 13:59
[2017-03-17] MEDS ORDERED: IV NORMAL SALINE 500ML BAG 500 ML IV ONE (08:45)
--- NOTE | 2017-03-17 09:56 | PDOC ---
GENERAL General: see dictated H&P. will start standard sliding scale insulin for diabetes as unable to give meds with ng tube. will also start a catapress patch for hpt while npo. surgery consulted. Problems: VITAL SIGNS Vital Signs: Vital Signs Date Time Temp Pulse Resp B/P (MAP) Pulse Ox O2 Delivery O2 Flow Rate FiO2 03/17/17 07:20 Nasal Cannula 2.0 03/17/17 07:00 98.8 75 18 133/82 (99) 93 98.8 ALLERGIES Allergies: Allergies Coded Allergies Type Severity Reaction Last Updated Verified iodine Allergy Severe Anaphylaxis 03/15/17 Yes metformin Allergy Intermediate 03/15/17 Yes morphine Allergy Intermediate Nausea and Vomiting 03/15/17 Yes naproxen sodium Allergy Intermediate Rash 03/15/17 Yes simvastatin Allergy Intermediate 03/15/17 Yes MEDS Medications: Current Medications Medications (Trade) Dose Ordered Sig/Len Start Time Stop Time Status Last Admin Dose Admin Dextrose/Sodium Chloride 1,000 ml @ 100 mls/hr 1X ONCE 03/17/17 05:30 03/17/17 15:29 03/17/17 05:30 100 MLS/HR Fentanyl Citrate (Fentanyl 2ml Vial) 50 mcg PRN Q2HR PRN 03/17/17 05:30 03/18/17 05:29 Ondansetron HCl (Zofran) 4 mg PRN Q8HRS PRN 03/17/17 05:30 03/18/17 05:29 Sodium Chloride 500 ml @ 500 mls/hr 1X ONCE 03/17/17 08:45 03/17/17 09:44 03/17/17 09:37 500 MLS/HR LAB Lab: Laboratory Tests Test 03/16/17 23:48 03/17/17 02:45 03/17/17 03:56 03/17/17 05:35 White Blood Count 17.6 x10^3/uL (4.0-11.0) Red Blood Count 5.73 x10^6/uL (4.30-5.70) Hemoglobin 17.2 g/dL (13.0-17.5) Hematocrit 51.7 % (39.0-53.0) Mean Corpuscular Volume 90 fL (79-100) Mean Corpuscular Hemoglobin 30 pg (25-35) Mean Corpuscular Hemoglobin Concent 33 g/dL (31-37) Red Cell Distribution Width 13.9 % (11.5-14.5) Platelet Count 187 x10^3/uL (140-400) Neutrophils (%) (Auto) 85 % (31-73) Lymphocytes (%) (Auto) 7 % (24-48) Monocytes (%) (Auto) 7 % (0-9) Eosinophils (%) (Auto) 1 % (0-3) Basophils (%) (Auto) 0 % (0-3) Neutrophils # (Auto) 14.9 x10^3uL (1.8-7.7) Lymphocytes # (Auto) 1.2 x10^3/uL (1.0-4.8) Monocytes # (Auto) 1.3 x10^3/uL (0.0-1.1) Eosinophils # (Auto) 0.2 x10^3/uL (0.0-0.7) Basophils # (Auto) 0.1 x10^3/uL (0.0-0.2) Prothrombin Time 13.9 SEC (11.7-14.0) Prothromb Time International Ratio 1.1 (0.8-1.1) Sodium Level 139 mmol/L (136-145) Potassium Level 4.0 mmol/L (3.5-5.1) Chloride Level 97 mmol/L (98-107) Carbon Dioxide Level 36 mmol/L (21-32) Anion Gap 6 (6-14) Blood Urea Nitrogen 14 mg/dL (8-26) Creatinine 1.0 mg/dL (0.7-1.3) Estimated GFR (Cockcroft-Gault) 74.8 Glucose Level 142 mg/dL (70-99) Calcium Level 10.1 mg/dL (8.5-10.1) Magnesium Level 1.9 mg/dL (1.8-2.4) Total Bilirubin 0.5 mg/dL (0.2-1.0) Direct Bilirubin < 0.1 mg/dL (0.0-0.2) Aspartate Amino Transf (AST/SGOT) 33 U/L (15-37) Alanine Aminotransferase (ALT/SGPT) 33 U/L (16-63) Alkaline Phosphatase 79 U/L (46-116) Creatine Kinase 511 U/L (39-308) Creatine Kinase MB (Mass) 7.6 ng/mL (0.0-3.6) Creatine Kinase MB Relative Index 1.5 % (0-4) Troponin I Quantitative < 0.017 ng/mL (0.000-0.055) < 0.017 ng/mL (0.000-0.055) < 0.017 ng/mL (0.000-0.055) ZV-Sae-X-Type Natriuretic Peptide 119 pg/mL (0-124) Total Protein 7.5 g/dL (6.4-8.2) Albumin 4.2 g/dL (3.4-5.0) Lipase 140 U/L (73-393) Thyroid Stimulating Hormone (TSH) 4.216 uIU/mL (0.358-3.74) Urine Collection Type Unknown Urine Color Yellow Urine Clarity Clear Urine pH 7.0 Urine Specific [place] 1.010 Urine Protein Negative mg/dL (NEG-TRACE) Urine Glucose (UA) Negative mg/dL (NEG) Urine Ketones (Stick) Negative mg/dL (NEG) Urine Blood Negative (NEG) Urine Nitrite Negative (NEG) Urine Bilirubin Negative (NEG) Urine Urobilinogen Dipstick 0.2 mg/dL (0.2 mg/dL) Urine Leukocyte Esterase Negative (NEG) Urine RBC Occ /HPF (0-2) Urine WBC Occ /HPF (0-4) Urine Squamous Epithelial Cells Few /LPF Urine Amorphous Sediment Present /HPF Urine Bacteria 0 /HPF (0-FEW) Urine Opiates Screen Neg (NEG) Urine Methadone Screen Neg (NEG) Urine Barbiturates Neg (NEG) Urine Phencyclidine Screen Neg (NEG) Urine Amphetamine/Methamphetamine Neg (NEG) Urine Benzodiazepines Screen Neg (NEG) Urine Cocaine Screen Neg (NEG) Urine Cannabinoids Screen Neg (NEG) Urine Ethyl Alcohol Neg (NEG) Test 03/17/17 07:31 03/17/17 08:00 Glucose (Fingerstick) 121 mg/dL (70-99) White Blood Count 12.0 x10^3/uL (4.0-11.0) Red Blood Count 5.21 x10^6/uL (4.30-5.70) Hemoglobin 15.6 g/dL (13.0-17.5) Hematocrit 47.3 % (39.0-53.0) Mean Corpuscular Volume 91 fL (79-100) Mean Corpuscular Hemoglobin 30 pg (25-35) Mean Corpuscular Hemoglobin Concent 33 g/dL (31-37) Red Cell Distribution Width 14.3 % (11.5-14.5) Platelet Count 171 x10^3/uL (140-400) Neutrophils (%) (Auto) 81 % (31-73) Lymphocytes (%) (Auto) 9 % (24-48) Monocytes (%) (Auto) 8 % (0-9) Eosinophils (%) (Auto) 2 % (0-3) Basophils (%) (Auto) 0 % (0-3) Neutrophils # (Auto) 9.7 x10^3uL (1.8-7.7) Lymphocytes # (Auto) 1.1 x10^3/uL (1.0-4.8) Monocytes # (Auto) 0.9 x10^3/uL (0.0-1.1) Eosinophils # (Auto) 0.2 x10^3/uL (0.0-0.7) Basophils # (Auto) 0.0 x10^3/uL (0.0-0.2) LASHAE JOYA MD Mar 17, 2017 09:56
[2017-03-17] MEDS ORDERED: DEXTROSE 50% 25 GM / 50ML DISP.SYRIN. IV PRN (10:00)
[2017-03-17] MEDS ORDERED: cloNIDine TTS-1 1 PATCH PATCH.TDWK TD SCH (10:00)
--- NOTE | 2017-03-17 10:22 | RAD ---
Portable abdomen, 03/17/2017, 10:08 AM: History: Check NG tube placement Comparison is made to a study from earlier the same day. An NG tube has been inserted with its tip overlying the fundal aspect of the stomach. A sidehole lies near the level of the GE junction. There is a moderate amount of stool in the right colon. The abdominal gas pattern is otherwise unremarkable. IMPRESSION: Interval insertion of an NG tube extending into the fundus of the stomach.
[2017-03-17 11:00] VITALS: BP 140/85
[2017-03-17] MEDS: fentaNYL PF VIAL 100 MCG/2 ML VIAL IV PRN ×4 (11:00→20:31)
[2017-03-17] MEDS: INSULIN ASPART 300 UNITS/3 ML INSULN.PEN SQ SCH ×2 (12:00→17:00)
[2017-03-17] MEDS: ONDANSETRON PF 4 MG/2 ML VIAL. IV PRN ×2 (12:27→20:31)
[2017-03-17] MEDS ORDERED: BENZOCAINE/MENTHOL LOZENGE. PO PRN (14:00)
[2017-03-17] MEDS ORDERED: PHENOL ORAL SPRAY 177ML BOTTLE. PO PRN (14:00)
[2017-03-17 15:00] VITALS: BP 147/88
[2017-03-17] MEDS: IV NORMAL SALINE 1000ML BAG 1,000 ML IV SCH ×2 (16:33→18:45)
[2017-03-17 19:00] VITALS: BP 148/90
[2017-03-17 23:00] VITALS: BP 158/85
[2017-03-18 03:00] VITALS: BP 159/93
[2017-03-18] MEDS: IV NORMAL SALINE 1000ML BAG 1,000 ML IV SCH ×2 (04:45→12:00)
[2017-03-18 05:25] LABS: BASO % 0 % (0-3); EOS % 1 % (0-3); HEMATOCRIT 44.6 % (39.0-53.0); HEMOGLOBIN 15.4 g/dL (13.0-17.5); LYMPH # 0.7 x10^3/uL (1.0-4.8); LYMPH % 6 % (24-48); MEAN CORPUSCULAR HEMOGLOBIN 30 pg (25-35); MEAN CORPUSCULAR HGB CONC 35 g/dL (31-37); MEAN CORPUSCULAR VOLUME 88 fL (79-100); MONO % 9 % (0-9); NEUT % 83 % (31-73); PLATELET COUNT 169 x10^3/uL (140-400); RED BLOOD COUNT 5.08 x10^6/uL (4.30-5.70); WHITE BLOOD COUNT 12.2 x10^3/uL (4.0-11.0)
[2017-03-18 05:46] LABS: CALCIUM 8.3 mg/dL (8.5-10.1); CREATININE 0.9 mg/dL (0.7-1.3); GFR 84.4; POTASSIUM 3.5 mmol/L (3.5-5.1)
[2017-03-18 07:00] VITALS: BP 132/84
[2017-03-18] MEDS: INSULIN ASPART 300 UNITS/3 ML INSULN.PEN SQ SCH ×3 (08:00→17:00)
--- NOTE | 2017-03-18 08:30 | RAD ---
Acute abdomen series, 03/18/2017: History: Small bowel obstruction Comparison is made to yesterday study. An NG tube remains in place extending into the proximal aspect of the stomach. There is a moderate amount of gas and stool scattered throughout the colon. No significant small bowel distention is evident. No free air is seen in the abdomen. There is no evidence of organomegaly. The heart is within normal limits in size. There is minimal linear atelectasis or scarring in the left base. No pulmonary consolidation is seen. There is no evidence of pleural fluid. IMPRESSION: 1. The NG tube extends into the proximal aspect of the stomach. 2. No acute abdominal abnormality is detected.
--- NOTE | 2017-03-18 09:26 | PDOC ---
Provider Note Provider Note vss, some flatus- labs ok- will not use januvia at home re lower a1c 6.3, cost JENNIFER JONES MD Mar 18, 2017 09:26
--- NOTE | 2017-03-18 10:56 | PDOC ---
Provider Note Provider Note +flatus. his says his abdomen has been red around the incision since surgery and the nurses removed the bandage thinking he may be reacting to it. she thinks the redness is better. no abd pain except at inc as expected afeb vss wbc stable at ~12 does not appear ill, toxic abd soft nd nt except mild at inc as expected inc covered by dry steristrips. erythema around the inc and lower abdomen-- nontender, not indurated a/p erythema, poss reaction to bandage or prep used intra op. says this started the day of surgery so this explanation is most likely. infection less likely given timing, but given the persistence of the erythema, i have empirically started ancef. added lovenox for dvt proph dc ng (xrays with air throughout colon, nonobstructive). start clears. AIDE OCONNOR MD Mar 18, 2017 10:56
[2017-03-18 11:00] VITALS: BP 140/91
[2017-03-18 12:53] LABS: HEMATOCRIT 43.7 % (39.0-53.0); RED BLOOD COUNT 4.96 x10^6/uL (4.30-5.70); WHITE BLOOD COUNT 12.6 x10^3/uL (4.0-11.0)
[2017-03-18] MEDS: HYDROmorphone 2 MG/ML VIAL IVP PRN ×3 (13:06→21:43)
[2017-03-18 15:02] VITALS: BP 124/81
[2017-03-18 19:00] VITALS: BP 124/84
[2017-03-18] MEDS: ENOXAPARIN 40 MG/0.4 ML SYRINGE. SQ SCH (21:00)
[2017-03-18 23:00] VITALS: BP 126/75
[2017-03-19] MEDS: IV NORMAL SALINE 1000ML BAG 1,000 ML IV SCH ×3 (00:54→22:33)
[2017-03-19] MEDS: HYDROmorphone 2 MG/ML VIAL IVP PRN ×2 (00:55→09:52)
[2017-03-19 03:00] VITALS: BP 108/73
[2017-03-19 07:00] VITALS: BP 128/68
[2017-03-19] MEDS: INSULIN ASPART 300 UNITS/3 ML INSULN.PEN SQ SCH ×3 (08:00→16:58)
--- NOTE | 2017-03-19 08:41 | PDOC ---
Provider Note Provider Note labs ok, bp good ,curtis cl so far- cont same, diet per surg JENNIFER JONES MD Mar 19, 2017 08:41
--- NOTE | 2017-03-19 10:22 | PDOC ---
Provider Note Provider Note I saw and examined him. hiccups persist. no belching. no nausea. doesn't feel distended. +flatus. curtis clears afeb vss no distress abd soft nd nt no tympany inc covered by dry steristrips. erythema much improved a/p ileus, improving. erythema abd skin around incision, most likely rxn to adhesive or prep, based on timing this is less likely infection full liquids. AIDE OCONNOR MD Mar 19, 2017 10:22
[2017-03-19 11:09] VITALS: BP 119/66
[2017-03-19 15:00] VITALS: BP 119/77
[2017-03-19 19:39] VITALS: BP 135/75
[2017-03-19] MEDS: ENOXAPARIN 40 MG/0.4 ML SYRINGE. SQ SCH (21:00)
[2017-03-19 22:12] VITALS: BP 128/84
--- NOTE | 2017-03-20 01:43 | ACF ---
Admission Forms Criteria INTESTINAL OBSTRUCTION Clinical Indications for Admission to Inpatient Care ([place]/check or initial the applicable condition/criteria) Admission is indicated for 1 or more of the following (1)(2)(3)(4)(5)(6)(7): [X] I. Partial bowel obstruction II. Complete bowel obstruction Extended stay beyond goal length of stay may be needed for(3)(25): [ ]a) Identified etiology (eg, hernia, volvulus, cancer with obstruction) requiring intervention [ ]b) Gallstone ileus (26) [ ]c) Surgical intervention (3)(4)(5)(7)(27)(28)(29)(30): [ ]d) Acute comorbid illness (eg, electrolyte imbalance, hypovolemia, renal failure) The original [employer] content created by [employer] has been revised. The portions of the content which have been revised are identified through the use of italic text or in bold, and [facility] has neither reviewed nor approved the modified material. All other unmodified content is copyright [employer]. Please see references footnoted in the original [employer] edition 2017 Admission Criteria Met?: Yes FUAD RUSSELL Mar 20, 2017 01:43
[2017-03-20] MEDS: HYDROmorphone 2 MG/ML VIAL IVP PRN (01:53)
[2017-03-20 02:37] VITALS: BP 137/80
[2017-03-20 04:27] LABS: HEMATOCRIT 42.3 % (39.0-53.0); HEMOGLOBIN 14.4 g/dL (13.0-17.5); RED BLOOD COUNT 4.8 x10^6/uL (4.30-5.70); RED CELL DISTRIBUTION WIDTH 13.4 % (11.5-14.5); WHITE BLOOD COUNT 9.9 x10^3/uL (4.0-11.0)
[2017-03-20 04:46] LABS: CALCIUM 8.4 mg/dL (8.5-10.1); CREATININE 0.8 mg/dL (0.7-1.3); GFR 96.7; POTASSIUM 3.6 mmol/L (3.5-5.1)
[2017-03-20] MEDS: IV NORMAL SALINE 1000ML BAG 1,000 ML IV SCH (06:45)
[2017-03-20 07:00] VITALS: BP 137/84
[2017-03-20] MEDS: INSULIN ASPART 300 UNITS/3 ML INSULN.PEN SQ SCH (07:52)
--- NOTE | 2017-03-20 08:33 | PDOC ---
Provider Note Provider Note vss, no temp, labs good- on fl now- dc iv fluid, dc when surg ok JENNIFER JONES MD Mar 20, 2017 08:33
[2017-03-20 11:00] VITALS: BP 130/83
[2017-03-20] MEDS ORDERED: CLIN300C8 PO (11:21)
[2017-03-20] MEDS ORDERED: LACT1CAP8 PO (11:21)
--- NOTE | 2017-03-20 11:25 | PDOC ---
Provider Note Provider Note no abd pain. +bm. hiccups better. no n/v. wants to go home. ambulating independently in the halls. expresses gratitude for the care i have given him his RUE arm had an IV that he says 'went bad' last night. the iv was removed. the swelling and redness on his arm has improved per his report. the arm is sore. afeb vss wbc normal rue with mild erythema and tenderness and induration. no fluctuance no pus at iv site. no skin necrosis abd soft nd nt the inc is healing as expected. min amt of dry necrosis at skin edges (i removed the steristrips) erythema on abd wall resolved. a/p soft diet. dc home on oral clinda for poss abd skin cellulitis and poss rue cellulitis. instructed him to call if the arm worsens--see dc instructions for more info. AIDE OCONNOR MD Mar 20, 2017 11:25
--- NOTE | 2017-03-25 12:32 | HP ---
ADMIT DATE: 03/17/2017 DATE OF SERVICE: 03/17/2017 CHIEF COMPLAINT AND HISTORY OF PRESENT ILLNESS: This is a 66-year-old male who is a patient of Dr. Bob, who I am covering for on the date of the patient's admission. The patient presented to the Emergency Room with complaints of nausea, vomiting and a syncopal episode. The patient has a history of having umbilical hernia surgery on 03/15/2017. The patient states that he has not had a bowel movement or flatulence since his surgery and has been having increased abdominal distention since. The patient presented to the ER on 03/14/2017 with complaints of urinary retention. The patient was straight cathed on that day and has had no further complaints of urinary retention since. In the Emergency Room, a CT scan was performed, which revealed a bowel obstruction. The patient was admitted to the hospital for evaluation and treatment. PAST MEDICAL HISTORY: As mentioned above, the patient underwent hernia repair on 03/15/2017. The patient has a history of hypertension. ALLERGIES: IODINE, METFORMIN, MORPHINE, NAPROXEN, SODIUM, SIMVASTATIN. FAMILY HISTORY: Noncontributory. REVIEW OF SYSTEMS: As mentioned above. PHYSICAL EXAMINATION: GENERAL: The patient is a well-developed and well-nourished male who is in no apparent distress on the morning of my examination. VITAL SIGNS: Stable this morning with mildly elevated blood pressure at 141/79. HEENT: Unremarkable. NECK: Supple, without adenopathy. CHEST: Clear to auscultation bilaterally. Respirations are even and unlabored. HEART: Regular rate and rhythm without S3, S4 or murmur. ABDOMEN: Distended, tender throughout without hepatosplenomegaly or mass present. EXTREMITIES: Without cyanosis, clubbing or edema. NEUROLOGIC: Grossly intact. IMPRESSION: Bowel obstruction following umbilical hernia repair on 03/15/2017. PLAN: The patient has been admitted, Surgery team has been consulted. An NG tube has been placed for decompression. The patient will be placed on Catapres for his blood pressure and we will change his D5 to sliding scale NovoLog. The patient will remain on telemetry until the bowel obstruction is cleared. We will continue to monitor the patient closely throughout his hospital stay. LASHAE JOYA MD DR: ERIK/mckinley JOB#: [id number] / [id number]
--- NOTE | 2017-03-27 07:52 | PDOC ---
Provider Note Provider Note [id number] JENNIFER JONES MD Mar 27, 2017 07:52
--- NOTE | 2017-03-27 08:59 | DS ---
DATE OF DISCHARGE: 03/20/2017 DATE OF ADMISSION: 03/17/2017 DATE OF DISCHARGE: 03/20/2017 HOSPITAL SUMMARY: A 66-year-old white male just a few days out from laparoscopic hernia repair, came in with vomiting and evidence of some degree of small-bowel obstruction by CT scan. CBC showed leukocytosis that resolved and chemistry studies were all within normal limits. Urine drug screen was negative. Urinalysis was normal as well. He responded to IV fluids and NG suction for a few days and was able to advance his diet from liquids to some food and was able to be discharged and followed as an outpatient. FINAL DIAGNOSES: Ileus, status post hernia repair. OPERATIONS, PROCEDURES, COMPLICATIONS: None. CONSULTATIONS: Dr. Moya's group. DISPOSITION: All meds remain the same. Pain meds per the surgeons ____ and advance diet as tolerated. Office followup with their office in 1 week regarding sutures and wound status. JENNIFER JONES MD DR: TRU/mckinley JOB#: [id number] / [id number]
== END 2017-03-20 13:45 | disposition home or self-care (01) | DRG 394 ==
LOC: ER 23:27 → 4 NORTH 03-17 03:30
PROVIDERS: ADMIT Family Medicine; ATTEND Family Medicine
PROC: 0D9670Z Drainage of Stomach with Drainage Device, Via Natural or Artificial Opening (ICD-10-PCS; principal; 2017-03-17)
DX: K91.3 Postprocedural intestinal obstruction (principal); L03.311 Cellulitis of abdominal wall; I10 Essential (primary) hypertension; E11.9 Type 2 diabetes mellitus without complications; L03.113 Cellulitis of right upper limb; K56.7 Ileus, unspecified; E78.5 Hyperlipidemia, unspecified; E86.0 Dehydration; R33.9 Retention of urine, unspecified; R06.6 Hiccough; Z88.8 Allergy status to other drugs, medicaments and biological substances; Z79.4 Long term (current) use of insulin; Z88.6 Allergy status to analgesic agent
CPT/HCPCS: 36415; 71010; 74000; 74020; 74022; 74176; 80048; 80076; 80307; 81001; 82553; 82962; 83690; 83735; 83880; 84443; 84484; 85025; 85027; 85610; 93005; 96361; 96374; J0690; J1170; J1815; J2405; J3010; J3230; J7030; J7040; P9612; 99285-25; G0479

== ENCOUNTER → 2018-04-11 | Outpatient (CLI) | payer MEDICARE ==
[~2018-04-11] MED LIST changes: +CLIN300C8 PO; +LACT1CAP8 PO; -LOSA25TA4 PO; +LOSA25TA5 PO
--- NOTE | 2018-04-11 13:08 | KCIC ---
CERVICAL SPINE 5V History: Left cervical radiculopathy, neck pain, shoulder pain Comparison: None. Findings: 6 views of the cervical spine are submitted. There is multilevel cervical facet degenerative change. There is adequate alignment of lateral masses C1 relative to C2. Tip of dens is obscured the odontoid view. There is moderate to severe degenerative disc disease C5-C6 and to lesser degree C6-7 with spondylosis at the same levels. Cervical vertebral body stature is preserved. AP alignment is within normal limits. There is narrowing of the left C5-6 neural foramen by uncovertebral osteophytes. There is atherosclerotic calcification of the right carotid artery in the neck. Impression: 1. There is degenerative disc disease and spondylosis greatest C5-6 and C6-7. 2. There is narrowing of the left C5-6 neural foramen by uncovertebral osteophytes. There is multilevel facet degenerative change. Electronically signed by: Yannick Ng MD (04/11/2018 1:04 PM) [id number]
== END | disposition home or self-care (01) ==
LOC: KCIC 10:36
PROVIDERS: ATTEND Family Medicine
DX: M50.323 Other cervical disc degeneration at C6-C7 level (principal); M47.892 Other spondylosis, cervical region; M48.02 Spinal stenosis, cervical region; M25.78 Osteophyte, vertebrae
CPT/HCPCS: 72050

== ENCOUNTER → 2018-04-18 | Outpatient (CLI) | payer MEDICARE ==
--- NOTE | 2018-04-18 10:18 | KCIC ---
MRI Cervical Spine Without Contrast History: Cervical radiculopathy, acute pain and pain and numbness in the left upper extremity for 6 weeks Technique: Multiplanar, multi sequential noncontrast MR imaging was performed of the cervical spine. Comparison: None Findings: Cervical vertebral body stature is preserved. Cervical cord caliber is within normal limits without convincing focal signal abnormality, somewhat limited evaluation at sites of spinal stenosis such as C4-5 and C5-6. There is no significant abnormality of the cervical medullary junction. AP alignment is within normal limits. There is vnxw-gz-[id number] degenerative disc disease at C5-C6, minimally at C6-7, mild disc desiccation at other levels. C2-C3: Neural foramina and spinal canal are adequate. C3-C4: Central canal is borderline about 10 mm on developmental basis. Neural foramina are overall adequate. C4-C5: There is extrusion extending above and below the intervertebral disc space more centrally with indentation upon the ventral thecal sac and cord, extrusion on the order of about 1.4 cm CC by 0.5 cm AP by 1.2 cm transverse. Central canal is significantly narrowed to about 0.3 to 0.4 cm. Neural foramina are adequate. C5-C6: There is a broad prominent posterior protrusion more eccentric to the left lateral recess, probably a very shallow within extruded component extending slightly above the intervertebral disc space. There is effacement of ventral subarachnoid space and indentation upon the ventral cord greater in the left lateral recess, significant narrowing the central canal on the order of 0.4 to 0.5 cm, greater degree of left lateral recess stenosis. There is likely component of left uncovertebral degenerative change. There is severe narrowing of the left neural foramen greater proximally. Right neural foramen is overall adequate. C6-C7: There is disc osteophyte complex and bulge/protrusion. Central canal is narrowed to 6 to 7 mm. There is uncovertebral degenerative change on the left. Right neural foramen is adequate. There is moderate to severe narrowing of the left neural foramen. C7-T1: There is a very shallow posterior central protrusion. Central canal is adequate about 11 mm. Neural foramina are adequate. Impression: 1. There is severe spinal stenosis C4-5 and C5-C6, large extrusion at C4-5 and prominent protrusion C5-C6. There is indentation upon the ventral cord. There is a lesser degree of spinal stenosis C6-7 as described. 2. There is more significant narrowing of the left C5-6 and C6-7 neural foramina. 3. There is exds-pc-vsiobcam degenerative disc disease C5-6 and to lesser degree at C6-7. Results were called to the nurse in Dr. Bob's office April 18, 2018 10:14 AM. Electronically signed by: Yannick Ng MD (04/18/2018 10:14 AM) [facility]-[id number]
== END | disposition home or self-care (01) ==
LOC: KCIC MRI 08:23
PROVIDERS: ATTEND Family Medicine
DX: M50.123 Cervical disc disorder at C6-C7 level with radiculopathy (principal); M48.02 Spinal stenosis, cervical region; Z98.890 Other specified postprocedural states
CPT/HCPCS: 72141

== ENCOUNTER → 2018-06-05 | Outpatient (CLI) | payer MEDICARE ==
[~2018-06-05] MED LIST changes: +DOCU-109 PO; +HYDR-2761 PO; -LOSA25TA5 PO; +LOSA25TA54 PO; +METH750T2 PO; -OXYC-323 PO; +OXYC1TAB15 PO; +PSYL0.5215 PO
--- NOTE | 2018-06-05 15:04 | EKG ---
[facility] [address] [place] [address] Test Date: 2018-06-05 Test Time: 15:12:13 Pat Name: XOCHITL CUENCA Department: Room: Gender: M [employer] Work[employer]: TV : 1950 Requested By: ANGELO VALENTINE Order Number: [id number] Reading MD: Mike Jama MD Measurements Intervals [place] Rate: 77 P: 38 DC: 160 QRS: -17 QRSD: 86 T: 52 QT: 368 QTc: 418 Interpretive Statements SINUS RHYTHM Electronically Signed On 06-09-2018 8:16:44 [employer] PROGRAM COORDINATOR by Mike Jama MD
[2018-06-05 15:22] LABS: BASO # 0.1 x10^3/uL (0.0-0.2); BASO % 1 % (0-3); EOS # 0.4 x10^3/uL (0.0-0.7); EOS % 5 % (0-3); HEMATOCRIT 47.9 % (39.0-53.0); HEMOGLOBIN 16.7 g/dL (13.0-17.5); LYMPH # 1.7 x10^3/uL (1.0-4.8); LYMPH % 21 % (24-48); MEAN CORPUSCULAR HEMOGLOBIN 31 pg (25-35); MEAN CORPUSCULAR HGB CONC 35 g/dL (31-37); MEAN CORPUSCULAR VOLUME 89 fL (79-100); MONO # 0.8 x10^3/uL (0.0-1.1); MONO % 9 % (0-9); NEUT # 5.3 x10^3uL (1.8-7.7); NEUT % 64 % (31-73); PLATELET COUNT 192 x10^3/uL (140-400); RED BLOOD COUNT 5.38 x10^6/uL (4.30-5.70); RED CELL DISTRIBUTION WIDTH 13.8 % (11.5-14.5); WHITE BLOOD COUNT 8.3 x10^3/uL (4.0-11.0)
[2018-06-05 15:39] LABS: ALBUMIN 3.9 g/dL (3.4-5.0); ALBUMIN/GLOBULIN RATIO 1.3 (1.0-1.7); CALCIUM 9.2 mg/dL (8.5-10.1); CREATININE 0.9 mg/dL (0.7-1.3); GFR 84.2; POTASSIUM 3.9 mmol/L (3.5-5.1); TOTAL BILIRUBIN 0.3 mg/dL (0.2-1.0); TOTAL PROTEIN 6.9 g/dL (6.4-8.2)
== END ==
LOC: SURGPAT 14:28
PROVIDERS: ATTEND Neurological Surgery
DX: Z01.818 Encounter for other preprocedural examination (principal); M48.02 Spinal stenosis, cervical region; M54.12 Radiculopathy, cervical region
CPT/HCPCS: 36415; 80053; 85025; 87641; 93005

== ENCOUNTER 2018-06-12 08:29 | Inpatient (IN) | payer MEDICARE ==
--- NOTE | 2018-06-11 17:35 | HP ---
ADMIT DATE: 06/12/2018 DATE OF SURGERY: 06/12/2018 HISTORY OF PRESENT ILLNESS: The patient is a pleasant 67-year-old who has difficulty with neck pain as well as left arm, forearm and hand numbness and tingling. He says in the last few days, he has noted tingling, which can radiate into his left leg. The problem started in February 2018 and was with severe pain in his neck. He rates his pain as a 9/10. He says he notes a constant numb and tingling sensation. He says he is also noticing unsteadiness with walking. PAST MEDICAL HISTORY: Headaches and migraines, head or neck injury, hypertension. PAST SURGICAL HISTORY: Left shoulder repair 1999, right shoulder repair in 2001, knee scope and repair in 2013, hernia repair in 2015. FAMILY HISTORY: Diabetes. SOCIAL HISTORY: Retired. . Denies substance abuse. Drinks alcohol 1-2 times per month. Drinks coffee and soda daily. ALLERGIES: STATINS, PREDNISONE, DEXAMETHASONE, METFORMIN and IV CONTRAST DYE. CURRENT MEDICATIONS: Losartan, doxazosin, fluticasone propionate, ranitidine, Zyrtec and Aleve. REVIEW OF SYSTEMS: A 12-point review of systems was obtained and is noncontributory except that mentioned above. PHYSICAL EXAMINATION: NEUROSURGERY EXAMINATION: GENERAL APPEARANCE: Alert, pleasant, no acute distress. HEAD: Normocephalic and atraumatic. SKIN: Warm and dry. MUSCULOSKELETAL: Cervical paraspinal muscle bulk was normal, cervical range of motion is restricted, normal range of motion of the upper extremities bilaterally. EXTREMITIES: No clubbing, cyanosis or edema. NEUROLOGIC: Alert and oriented x 3, normal recent and remote memory, strength 5/5 in bilateral upper and lower extremities except for a 4+/5 left biceps strength, sensory was intact to light touch in the upper and lower extremities, reflexes were present and symmetric and 1+ in the upper extremities, 2+ at the knees and 2+ at the ankles bilaterally. Unsteady gait. Unable to tandem walk. IMAGING: I reviewed a cervical MRI scan from 04/18/2018. On that study, there is severe spinal stenosis present at C4-C5 and C5-C6. At C4-C5, the spinal canal is narrowed to about 4 mm. At C5-C6, the spinal canal is narrowed to about 4-5 mm. There is also significant left lateral recess stenosis and foraminal narrowing at C5-C6. At C6-C7, the canal is narrowed to about 7 mm. There is also moderate narrowing of the left neural foramen at this level. ASSESSMENT/ PLAN: I believe the problems at C4-C5 and C5-C6 are primarily responsible for his symptoms. I recommended 2-level anterior cervical diskectomy and fusion. I discussed this with him in detail. I explained the surgery and the risks involved. I also discussed that in the future, he may require posterior cervical microdecompression surgery at C6-C7. I outlined in addition, the risks including paralysis. I spoke about the expected postoperative course. He understands. He would like to go ahead. We will make the arrangements. ANGELO VALENTINE MD DR: STANLEY/mckinley JOB#: [id number] / [id number] BLANCA
[2018-06-12] VITALS (8 sets, daily range): BP systolic 108–133; BP diastolic 67–84
[~2018-06-12] VITALS: Ht 175.3 cm; Wt 106.6 kg
[~2018-06-12 08:29] MED LIST changes: +BACITRACIN 50,000 UNIT in IV NORMAL SALINE 1000ML BAG 1,000 ML IRR ONE; +BUPIVAC MPF-EPI 0.5%-1:200000 30 ML VIAL. ONE; -DOCU-109 PO; +GELATIN SPONGE SIZE 100. ONE; -HYDR-2761 PO; -METH750T2 PO; +THROMBIN TOPICAL 20,000 UNIT SPRAY.SYRN KIT TP ONE
[2018-06-12] MEDS: IV RINGERS,LACTATED 1000ML 1,000 ML IV SCH ×2 (09:06→15:17)
[2018-06-12] MEDS ORDERED: MIDAZOLAM HCL/PF 2 MG/2 ML VIAL. IV PRN (09:15)
[2018-06-12] MEDS ORDERED: fentaNYL PF VIAL 100 MCG/2 ML VIAL IV PRN ×5 (09:15→14:30)
[2018-06-12] MEDS ORDERED: LIDOCAINE 1% PF 2 ML VIAL. ID PRN ×2 (09:15→10:00)
[2018-06-12] MEDS ORDERED: IV RINGERS,LACTATED 1000ML 1,000 ML IV SCH (09:51)
[2018-06-12] MEDS ORDERED: ONDANSETRON PF 4 MG/2 ML VIAL. IV PRN ×2 (10:00→14:30)
[2018-06-12] MEDS ORDERED: PROCHLORPERAZINE 10 MG/2 ML VIAL. IV PRN (10:00)
[2018-06-12] MEDS ORDERED: PROPOFOL 20 ML IV ONE ×2 (10:03→12:45)
[2018-06-12] MEDS ORDERED: fentaNYL PF VIAL 100 MCG/2 ML VIAL ONE (10:03)
[2018-06-12] MEDS ORDERED: MIDAZOLAM HCL/PF 2 MG/2 ML VIAL. ONE (10:03)
[2018-06-12] MEDS ORDERED: PROPOFOL 50 ML IV ONE ×2 (10:04→12:45)
[2018-06-12] MEDS ORDERED: SUCCINYLCHOLINE 200 MG/10 ML VIAL. ONE (10:04)
[2018-06-12] MEDS ORDERED: ROCURONIUM 50 MG/5 ML VIAL. ONE (10:04)
[2018-06-12] MEDS ORDERED: REMIFENTANIL 2 MG VIAL. IV ONE (10:04)
[2018-06-12] MEDS ORDERED: PHENYLEPHRINE 10 MG/ML VIAL. ONE (10:04)
[2018-06-12] MEDS ORDERED: ePHEDrine PF IN SALINE 50 MG/5 ML DISP.SYRIN IV ONE (11:53)
[2018-06-12] MEDS ORDERED: GLYCOPYRROLATE 1 MG/5 ML VIAL. ONE (12:06)
[2018-06-12] MEDS ORDERED: ONDANSETRON PF 4 MG/2 ML VIAL. ONE (12:45)
[2018-06-12] MEDS ORDERED: NEOSTIGMINE METHYLSULFATE 5 MG/5 ML SYRINGE. ONE (12:45)
[2018-06-12] MEDS ORDERED: DESFLURANE > 120 MINUTES IH ONE (13:31)
[2018-06-12] MEDS ORDERED: MAG HYDROX/ALUMINUM HYD/SIMETH 30 ML ORAL.SUSP PO PRN (14:30)
[2018-06-12] MEDS ORDERED: diphenhydrAMINE HCL 25 MG CAPSULE PO PRN (14:30)
[2018-06-12] MEDS ORDERED: ACETAMINOPHEN 325 MG TABLET. PO PRN (14:30)
[2018-06-12] MEDS ORDERED: HYDROcodone/APAP 5/325MG 1 TAB TABLET PO PRN (14:30)
[2018-06-12] MEDS ORDERED: 0.9 % SODIUM CHLORIDE 10 ML DISP.SYRIN. IV PRN (14:30)
[2018-06-12] MEDS ORDERED: MAGNESIUM HYDROXIDE 2,400 MG/30 ML ORAL.SUSP. PO PRN (14:30)
[2018-06-12] MEDS ORDERED: NON FORMULARY ITEM (Albuterol Sulfate (Ventolin Hfa Inhaler) 18 GM) IH SCH (14:30)
[2018-06-12] MEDS ORDERED: CALCIUM CARBONATE 500 MG TAB.CHEW PO PRN (14:30)
[2018-06-12] MEDS ORDERED: NALOXONE 0.4 MG/ML VIAL. IV PRN (14:30)
[2018-06-12] MEDS ORDERED: ALBUTEROL SULFATE 2.5 MG/3 ML NEBU. NEB PRN (15:15)
[2018-06-12] MEDS: fentaNYL PF VIAL 100 MCG/2 ML VIAL IV PRN ×4 (15:22→16:15)
[2018-06-12] MEDS: CETIRIZINE HCL 10 MG TABLET. PO SCH (16:00)
[2018-06-12] MEDS: METHOCARBAMOL 750 MG TABLET PO SCH ×2 (17:43→20:37)
[2018-06-12] MEDS: HYDROcodone/APAP 5/325MG 1 TAB TABLET PO PRN (18:47)
[2018-06-12] MEDS: DOCUSATE SODIUM 100 MG CAPSULE. PO SCH (20:36)
[2018-06-12] MEDS: ceFAZolin SODIUM 1 GM in IV DEXTROSE 5% 50 ML IV SCH (20:37)
[2018-06-12] MEDS: POTASSIUM CL 20MEQ D5-0.45NACL 1,000 ML IV SCH (20:43)
[2018-06-12] MEDS ORDERED: FAMOTIDINE 20 MG TABLET. PO PRN (21:00)
[2018-06-12] MEDS ORDERED: TAMSULOSIN 0.4 MG CAP.ER.24H. PO SCH (21:00)
[2018-06-13 03:20] VITALS: BP 132/90
[2018-06-13] MEDS: ceFAZolin SODIUM 1 GM in IV DEXTROSE 5% 50 ML IV SCH ×2 (03:33→11:32)
[2018-06-13] MEDS: POTASSIUM CL 20MEQ D5-0.45NACL 1,000 ML IV SCH (03:44)
[2018-06-13 06:20] VITALS: BP 124/85
[2018-06-13] MEDS: DOCUSATE SODIUM 100 MG CAPSULE. PO SCH (08:11)
[2018-06-13] MEDS: METHOCARBAMOL 750 MG TABLET PO SCH ×2 (08:12→14:00)
[2018-06-13] MEDS: HYDROcodone/APAP 5/325MG 1 TAB TABLET PO PRN (08:12)
[2018-06-13] MEDS: CETIRIZINE HCL 10 MG TABLET. PO SCH (08:13)
[2018-06-13] MEDS ORDERED: PSYLLIUM HUSK (SUGAR FREE) 1 PKT PACKET PO SCH (09:00)
[2018-06-13] MEDS ORDERED: LOSARTAN POTASSIUM 25 MG TABLET. PO SCH (09:00)
[2018-06-13] MEDS ORDERED: FLUTICASONE 50MCG/NASAL SPRAY 16GM BOTTLE. NS SCH ×2 (09:00)
[2018-06-13 11:07] VITALS: BP 132/86
--- NOTE | 2018-06-13 13:13 | DISCH ---
DISCHARGE INSTRUCTIONS Condition on Discharge Condition on Discharge: Stable Activity After Discharge Activity Instructions for Disc: Activity as tolerated, Avoid exertion, Progressive ambulation Other activity instructions: Do not drive for one week Bathing Instructions: Shower-keep dressing dry, No Tub Bath until see Lifting Instructions after Dis: No heavy lifting, No pulling or pushing, Do not lift >10 pounds Exercise Instruction after Dis: Exercise per therapy, Progress as tolerated Driving Instructions after Dis: Do not drive, Other, see below Weight Bearing Status after Di: Other, see below Diet after Discharge Diet after Discharge: Regular Liquid Texture: Thin Liquid Wound Incision Care Wound/Incision Care: Ice to area for comfort, Keep wound/cast CDI, Keep wound elevated, Change dressing, May get incision wet, Reinforce dressing PRN Other wound/incision instructi: may remove dressing in 48 hrs if dry then may shower, no soaking Wound Care Equipment: Dressings Checks after Discharge Checks after discharge: Check blood press - daily Contacting the after DC Call your doctor for: Concerns you may have Follow-Up Follow Up With: Dr Valentine's nurse in 10-14 days [phone] Treatment/Equipment after DC Adaptive Equipment Issued: None ANGELO VALENTINE MD Jun 13, 2018 13:13
[2018-06-13] MEDS ORDERED: METH750T2 PO (13:17)
[2018-06-13] MEDS ORDERED: HYDR-2761 PO (13:17)
[2018-06-13] MEDS ORDERED: DOCU-109 PO (13:17)
--- NOTE | 2018-06-13 19:04 | OP ---
DATE OF SURGERY: 06/12/2018 PREOPERATIVE DIAGNOSIS: Cervical spinal stenosis and cervical radiculopathy, C4-C5, C5-C6. POSTOPERATIVE DIAGNOSIS: Cervical spinal stenosis and cervical radiculopathy, C4-C5, C5-C6. OPERATION PERFORMED: Anterior cervical microdiscectomy, C4-C5, C5-C6. Anterior cervical interbody fusion C4-C5, C5-C6 with allograft and autograft bone and interbody fusion cage. Anterior cervical plate, C4, C5, C6. The operation was done with multimodality monitoring including NIMS monitoring, motor evoked potentials, somatosensory evoked potentials, EMG monitoring. The operation also included fluoroscopy and microscopy. SURGEON: Mauri Valentine M.D. REGISTERED NURSE RENAL: KASSY Cervantes assisted with the surgery. She assisted with the microdecompression at both C4-C5 and C5-C6. OPERATIVE INDICATIONS: The patient is a very pleasant 67-year-old man who developed problems with intractable neck and predominantly left arm pain along with numbness and pain in his left leg. He also noticed unsteadiness with walking. On imaging studies, he had severe stenosis at C4-C5 and C5-C6 and moderate stenosis at C6-C7, and I felt that the primary symptoms were related to his problems at C4-C5 and C5-C6 and recommended a 2-level anterior cervical microdiscectomy and fusion. I spoke with him about the surgery and the risks, the technique and expected postoperative course and he understood and he wished to go ahead. DESCRIPTION OF PROCEDURE: Following general endotracheal anesthesia, the patient was positioned supine on the operating room table. The head gently positioned on a donut. There was considerable care performed with anesthesia to avoid any changes in the neck alignment during the intubation. This was done very carefully. The anterior cervical region was then prepped and draped in the standard fashion. MONA hose and AV impulse boots were applied for DVT prophylaxis. A microscope was draped. Fluoroscopy was draped and brought into the field and monitoring was established. Ancef 2 g was given less than 1 hour prior to initiation of the surgery. Using fluoroscopic guidance, an incision was made from the midline around to the right side in a skin crease. I dissected down through skin, subcutaneous tissue, incised the platysma, then dissected around the medial aspect of the sternocleidomastoid and carotid artery sheath down the anterior cervical vertebral bodies. I confirmed my position fluoroscopically. I placed anterior cervical retractors wedged in the longus colli muscles at C5-C6 and I placed 14 mm pins in C5 and C6. The remainder of surgery was done with a microscope using microscopic technique. I incised the anterior annulus with #11 blade. I performed a discectomy with pituitary rongeurs. I drilled the anterior spurring and saved this bone for the bone fusion. I did remove the disc and scraped the endplates with the endplate scraper. I drilled the posterior spurring and then opened widely bilaterally. There was moderately large subligamentous disc herniation and I removed this material and fully decompressed the region. I worked out and I assured that the foramina were open. I measured and placed an 8 mm interbody fusion cage, which was packed with allograft and autograft bone after obtaining excellent hemostasis. I then removed the pin from C6 and was retracted superiorly to C4-C5 and I performed the identical operation at C4-C5. At this level, there was considerable disc material, which had also passed behind the body of C4 and I did trim off the inferior aspect of the C4 vertebral body to allow me to gain superior exposure and gently teased back and removed multiple disc fragments. As I worked, the region became very well decompressed. I did obtain perfect hemostasis. I irrigated copiously. I opened the annulus as well as the ligament during this process and I was able to pass out the foramina without difficulty. I scraped away the cartilaginous endplate. I placed an 8 mm interbody fusion cage, which was packed with allograft and autograft bone after perfect hemostasis had been obtained. I then placed a 34 mm plate and used six 14 mm screws to secure this. The superior and inferior screws were first placed followed by the remaining screws, which were all locked. I used the Chroma Opteryx system. I irrigated copiously and removed the retractor and explored carefully. Hemostasis was perfect. I closed the platysma as a separate layer. I then closed subcutaneous tissues. The skin was closed with 4-0 subcuticular stitch. The operation went very well. The patient was taken to the recovery room in excellent condition and virtually immediately noticed marked improvement in his overall symptoms. I was quite pleased with the surgery. MAURI VALENTINE MD DR: STANLEY/mckinley JOB#: [id number] / [id number] BLANCA
--- NOTE | 2018-06-16 18:08 | PATHOLOGY ---
[facility] Accession Number: [id number] . 01 Material submitted: . CERVICAL DISC . 01 Clinical history: . Cervical stenosis . 02 Diagnosis: Segments of fibrocartilaginous tissue and bone, cervical disc: - Degenerative changes of fibrocartilaginous tissue. . (JPM:mm; 06/16/18) [facility]/06/16/2018 . 02 Comment: There is no evidence of an acute inflammatory process or malignancy. . (JPM:mml; 06/16/18) . 02 Electronically signed: . Blu Jerez MD, Pathologist NPI- [id number] . 01 Gross description: . Received in formalin labeled "Melchor, Dar, cervical disc," are several pieces of glistening, fibrous tissue measuring 4.9 x 2.7 x 0.6 cm in aggregate dimensions, containing small fragments of possible bone. The tissue submitted representatively in cassette A1, following decalcification. (TSD; 06/13/2018) TOB/TOB . 02 Pathologist provided ICD-10: M50.30 . 02 CPT . 588196, [id number] Specimen Comment: A courtesy copy of this report has been sent to Specimen Comment: [phone], . Specimen Comment: Report sent to / DR JONES Performed at: [id number] [facility] [address], [place] [id number] MD Eliezer Parker MD Phone: [phone] Performed at: [facility] [address], [place] [id number] MD Blu Jerez MD Phone: [phone]
== END 2018-06-13 13:45 | disposition home or self-care (01) | DRG 472 ==
LOC: SURG 08:29 → 4 NORTH 16:35 → 4 SOUTHEST 18:34
PROVIDERS: ADMIT Neurological Surgery; ATTEND Neurological Surgery
PROC: 0RB30ZZ Excision of Cervical Vertebral Disc, Open Approach (ICD-10-PCS; 2018-06-12)
PROC: 4A11X4G Monitoring of Peripheral Nervous Electrical Activity, Intraoperative, External Approach (ICD-10-PCS; 2018-06-12)
PROC: 0RG20A0 Fusion of 2 or more Cervical Vertebral Joints with Interbody Fusion Device, Anterior Approach, Anterior Column, Open Approach (ICD-10-PCS; principal; 2018-06-12 10:30)
DX: M48.02 Spinal stenosis, cervical region (principal); M47.12 Other spondylosis with myelopathy, cervical region; M50.021 Cervical disc disorder at C4-C5 level with myelopathy; M47.22 Other spondylosis with radiculopathy, cervical region; M50.122 Cervical disc disorder at C5-C6 level with radiculopathy; G43.909 Migraine, unspecified, not intractable, without status migrainosus; I10 Essential (primary) hypertension; Z88.8 Allergy status to other drugs, medicaments and biological substances; Z91.041 Radiographic dye allergy status; Z83.3 Family history of diabetes mellitus
CPT/HCPCS: 76000; A7015; C1713; C1821; J0330; J0690; J2250; J2405; J2704; J2710; J3010; J3490; J7030; J7120; 97530

== ENCOUNTER → 2018-09-04 | Outpatient (CLI) | payer MEDICARE ==
[~2018-09-04] MED LIST changes: -BACITRACIN 50,000 UNIT in IV NORMAL SALINE 1000ML BAG 1,000 ML IRR ONE; -BUPIVAC MPF-EPI 0.5%-1:200000 30 ML VIAL. ONE; +DOCU-109 PO; -GELATIN SPONGE SIZE 100. ONE; +HYDR-2761 PO; +METH750T2 PO; -THROMBIN TOPICAL 20,000 UNIT SPRAY.SYRN KIT TP ONE
--- NOTE | 2018-09-04 15:01 | KCIC ---
EXAM: Cervical spine, 4 views. HISTORY: Fusion. COMPARISON: None. FINDINGS: 4 views of the cervical spine are obtained. There is instrumented intraspinal fusion and interbody fusion at C4 through C6. The vertebral bodies are normal in height. There is no listhesis. There is slight disc space narrowing and endplate remodeling at C6-C7. IMPRESSION: 1. Instrumented fusion at C4-C6. 2. Mild degenerative change at C6-C7. Electronically signed by: Kim Gonzales MD (09/04/2018 2:58 PM) [place] [id number]
== END | disposition home or self-care (01) ==
LOC: KCIC 13:49
PROVIDERS: ATTEND Neurological Surgery
DX: M43.22 Fusion of spine, cervical region (principal); M47.812 Spondylosis without myelopathy or radiculopathy, cervical region; M48.02 Spinal stenosis, cervical region
CPT/HCPCS: 72040

== ENCOUNTER → 2019-04-20 | Outpatient (CLI) | payer MEDICARE ==
--- NOTE | 2019-04-22 11:11 | SLEEP ---
DATE OF STUDY: 04/20/2019 HOME SLEEP STUDY REFERRING PHYSICIAN: Dr. Mahad Bob The patient is a 68-year-old who weighs 230 pounds with a BMI of 34. The patient's Delhi score was 14. The patient underwent home sleep study performed at [facility]. Total recording time was 371 minutes. During the night study, the patient had 76 obstructive apneas, no central apneas, 98 mixed apneas and 109 hypopneas. The patient's apnea hypopnea index was 45.7 per hour. Nocturnal oximetry study revealed an average oxygen saturation of 89% with lowest of 78%. 246 minutes were spent in oxygen saturation less than 90%. Mean heart rate 71 beats per minute. IMPRESSION: 1. Severe sleep apnea-hypopnea syndrome at an AHI of 45.7 per hour. 2. Qgxylwrk-gu-zuxoak nocturnal hypoxia secondary to obstructive sleep apnea. RECOMMENDATIONS: 1. The patient would benefit from treatment of sleep apnea with CPAP. This can be performed as in-lab CPAP titration study versus a home auto CPAP titration study. 2. Once the patient is optimally treated with CPAP, then follow up in 4-6 weeks to assess compliance and to document clinical improvement. 3. Weight loss is strongly advised. 4. Avoid MANUFACTURING TECH depressants. 5. Cautioned regarding driving until symptoms of sleep apnea resolve with the use of CPAP. MD IVORY WHIPPLE/mckinley JOB#: [id number] / [id number] MAHAD Lindsay MD
== END | disposition home or self-care (01) ==
LOC: RT 11:04
PROVIDERS: ATTEND Internal Medicine Critical Care Medicine
DX: G47.33 Obstructive sleep apnea (adult) (pediatric) (principal); G47.34 Idiopathic sleep related nonobstructive alveolar hypoventilation
CPT/HCPCS: G0399

== ENCOUNTER → 2019-05-15 | Outpatient (CLI) | payer MEDICARE ==
[~2019-05-15] MED LIST changes: +ZOLPIDEM 5 MG TABLET. PO ONE
--- NOTE | 2019-05-19 14:31 | SLEEP ---
DATE OF STUDY: 05/15/2019 SLEEP STUDY ATTENDING PHYSICIAN: Dr. Jennifer Bob. SUBJECTIVE: The patient is a 68-year-old who weighs 235 pounds with a BMI of 35. The patient's Lutz score is 15. The patient had a home sleep study and was found to have severe GABBIE at an AHI of 45 per hour. The patient was referred for in-lab CPAP titration study. During the night study, the patient spent 425 minutes in bed and slept for 305 minutes with a sleep efficiency of 72%. Sleep latency was 93 minutes with a REM latency of 120 minutes. Sleep architecture showed normal stage 1 and stage 2 sleep, increased slow wave and reduced REM sleep. EKG monitoring revealed no sustained arrhythmias. Average heart rate 67 beats per minute. PLMS were seen at index of 55 per hour and 3 per hour caused EEG arousals. The patient was started on CPAP at 5 cm water and titrated up to 7 cm water. At the final pressure, the patient slept for 305 minutes. The patient had lateral REM sleep. The patient's AHI was reduced to 2 per hour and oxygen saturation remained above 89%. The patient used medium size nasal pillows. IMPRESSION: 1. Severe sleep apnea diagnosed by home sleep study. 2. Severe periodic limb movements. RECOMMENDATIONS: 1. CPAP at 7 cm water completely eliminated the patient's sleep apnea and should be used on a nightly basis. 2. Follow up in 4-6 weeks to assess compliance with CPAP and to document clinical improvement. 3. Weight loss is strongly advised. 4. Avoid TIER OVER depressants. 5. Cautioned regarding driving until symptoms of sleep apnea resolve with the use of CPAP. 6. The patient should also be further evaluated for symptoms of restless legs during the day. DENISSE DASH MD DR: ARAMIS/mckinley JOB#: [id number] / [id number] JENNIFER Lindsay MD
== END | disposition home or self-care (01) ==
LOC: RT 18:55
PROVIDERS: ATTEND Internal Medicine Critical Care Medicine
DX: G47.33 Obstructive sleep apnea (adult) (pediatric) (principal)
CPT/HCPCS: 95811

== ENCOUNTER → 2019-06-09 | Outpatient (CLI) | payer MEDICARE ==
[~2019-06-09] MED LIST changes: -ALFU10TA3 PO; +ALFU10TA4 PO; -ZOLPIDEM 5 MG TABLET. PO ONE
--- NOTE | 2019-06-09 17:28 | RAD ---
Whole body bone scan Clinical indications: Prostate cancer. COMPARISON: No previous bone scan available. TECHNIQUE: After IV infusion of 25 mCi of technetium 99m MDP, delayed anterior and posterior planar images of the whole body were performed. FINDINGS: Bilateral renal function is evident. No radiotracer accumulation is seen to indicate osseous metastatic disease scintigraphically. No abnormal focal uptake is seen. IMPRESSION: No osseous metastatic disease is seen scintigraphically. Electronically signed by: Shayan Olguin MD (06/09/2019 5:25 PM) [facility]
== END | disposition home or self-care (01) ==
LOC: NM 07:32
PROVIDERS: ATTEND Urology
DX: C61 Malignant neoplasm of prostate (principal)
CPT/HCPCS: 78306; A9503

== ENCOUNTER → 2021-01-27 | Outpatient (CLI) | payer MEDICARE ==
[~2021-01-27] MED LIST changes: -CLIN300C8 PO; +CLIN300C9 PO; +METH-562 PO; -METH750T2 PO
--- NOTE | 2021-01-27 15:40 | KCIC ---
EXAMINATION: XR CHEST 2V CLINICAL HISTORY: COUGH IN THE MORNINGS XS 1 YEAR, NON SMOKER EXAM DATE/TIME: 01/27/2021 10:30 AM COMPARISON: 03/16/2017 FINDINGS: Lines, Tubes, and Devices: None. Cardiomediastinal Silhouette: Normal heart size. Aortic atherosclerotic calcification. Lungs and Pleura: Minimal patchy bibasilar opacities, possibly subsegmental atelectasis. No evidence of pleural effusion. Pulmonary vasculature unremarkable. Bones and Soft Tissues: Degenerative changes of the thoracic spine. IMPRESSION: No definitive evidence of acute cardiopulmonary abnormality. Minimal patchy bibasilar airspace disease, possibly subsegmental atelectasis. Electronically signed by: Farzad Mcduffie DO (01/27/2021 3:38 PM) [id number]
== END ==
LOC: KCIC 10:21
PROVIDERS: ATTEND Family Medicine
DX: R05 Cough (principal); I70.0 Atherosclerosis of aorta; M47.814 Spondylosis without myelopathy or radiculopathy, thoracic region
CPT/HCPCS: 71046

== ENCOUNTER → 2021-05-08 | Outpatient (CLI) | payer MEDICARE ==
[~2021-05-08] MED LIST changes: +CLIN-94 PO; -CLIN300C9 PO
--- NOTE | 2021-05-08 15:42 | KCIC ---
EXAM: XR LT WRIST 3VIEWS, XR HAND_LEFT 3 VIEWS, XR EXAM OF ANKLE_LEFT 3V, XR FOOT_LEFT 3 VIEWS 2020 11:45 AM CLINICAL INDICATION: Injury, left wrist pain, foot, and ankle pain after fall COMPARISON: None FINDINGS: Left hand: No acute fracture. Alignment is normal. Joint spaces are maintained. No soft tissue abnorm ality. Left wrist radiograph: No acute fracture. Alignment is normal. Joint spaces are maintained. No focal soft tissue abnormality. Left ankle: No acute fracture. There is a chronic osseous fragment at the tip of the lateral malleolu s, likely sequela of old injury. The ankle mortise is symmetric and talar dome is intact. No soft tis luis miguel swelling. Left foot: There is a suspected nondisplaced, comminuted intra-articular fracture of the great toe di stal phalanx. No definite other fracture. Alignment is normal. Joint spaces are maintained. Soft tiss ue is normal. IMPRESSION: 1. Nondisplaced comminuted fracture of the great toe distal phalanx. 2. No acute osseous abnormality of the left ankle. 3. No acute osseous abnormality of the left hand or wrist. Electronically signed by: Cate Chandra MD (05/08/2021 3:40 PM) [id number]
== END ==
LOC: KCIC 11:40
PROVIDERS: ATTEND Family Medicine
DX: S92.425A Nondisplaced fracture of distal phalanx of left great toe, initial encounter for closed fracture (principal); X58.XXXA Exposure to other specified factors, initial encounter; Y93.89 Activity, other specified; Y92.89 Other specified places as the place of occurrence of the external cause; Y99.8 Other external cause status
CPT/HCPCS: 73110; 73130; 73610; 73630